=== PATIENT | female | born 1960 | race Caucasian/White ===

== ENCOUNTER 2017-01-16 14:59 | Inpatient (IN) | payer BC ==
[~2017-01-16] VITALS: Ht 154.9 cm; Wt 71.5 kg
[~2017-01-16 14:59] MED LIST: ALBUAER2 INH; CITA40TA4 PO; IBUP600T44 PO; NICO1DIS7 TD; PRT40 PO
[2017-01-16 15:08] VITALS: Ht 154.9 cm; Wt 71.5 kg
[2017-01-16] MEDS ORDERED: ONDANSETRON INJ 2 MG/ML 2 ML VIAL IV STA (15:57)
[2017-01-16] MEDS ORDERED: FAMOTIDINE 20MG/102 ML D5W IV STA (15:57)
[2017-01-16] MEDS ORDERED: ALBUT/IPRATROP 3MG/0.5MG NEB 3 ML VIAL INH STA ×2 (15:57→17:34)
[2017-01-16] MEDS ORDERED: METHYLPREDNISOLONE 125 MG VIAL IV STA (15:57)
[2017-01-16] MEDS ORDERED: SODIUM CHLORIDE 0.9% 1000ML 1,000 ML IV STA (15:57)
--- NOTE | 2017-01-16 16:12 | DIAGNOSTIC IMAGING REPORT ---
CHEST ONE VIEW PORTABLE CLINICAL HISTORY: CHEST PAIN dyspnea COMPARISON STUDY: 02/05/2015 FINDINGS: The bones soft tissues and hemidiaphragms are normal. The cardiomediastinal silhouette is normal. The lungs are clear. The pulmonary vasculature is normal. IMPRESSION: Negative chest. Electronically signed by: Mika Montes De Oca M.D. 01/16/2017 4:10 PM Dictated Date/Time: 01/16/2017 4:10 PM
[2017-01-16 16:28] LABS: BASO % 0.2 %; BASO ABS # 0.04 K/uL (0-0.2); COMPLETE YES; EOS % 0.3 %; IG% 0.4 %; LYMPH % 10.2 %; LYMPH ABS # 1.86 K/uL (1.2-3.4); MEAN CELL VOLUME 94.5 fL (80-100); MEAN CORPUSCULAR HEMOGLOBIN 33.4 pg (25-34); MEAN CORPUSCULAR HGB CONC 35.3 g/dl (32-36); MEAN PLATELET VOLUME 9.7 fL (7.4-10.4); MONO % 6.9 %; PLATELET COUNT 239 K/uL (130-400); RED BLOOD COUNT 4.55 M/uL (4.2-5.4); WHITE BLOOD COUNT 18.22 K/uL (4.8-10.8)
[2017-01-16 16:46] LABS: ALT/SGPT 19 U/L (12-78); AST/SGOT 11 U/L (15-37); BLOOD UREA NITROGEN 8 mg/dl (7-18); BUN/CREATININE RATIO 12.7 (10-20); CALCIUM 8.8 mg/dl (8.5-10.1); CARBON DIOXIDE 27 mmol/L (21-32); CHLORIDE 105 mmol/L (98-107); CREATININE 0.65 mg/dl (0.60-1.20); GLUCOSE 83 mg/dl (70-99); POTASSIUM 3.8 mmol/L (3.5-5.1); SODIUM 140 mmol/L (136-145)
[2017-01-16 16:50] LABS: ALKALINE PHOSPHATASE 115 U/L (45-117)
[2017-01-16] MEDS ORDERED: IBUP-1277 PO (16:56)
[2017-01-16] MEDS ORDERED: ALBU18002 INH (16:56)
[2017-01-16] MEDS ORDERED: FLUT1INH INH (16:56)
[2017-01-16] MEDS ORDERED: ZPAK PO (16:56)
[2017-01-16] MEDS ORDERED: CITA40TA4 PO (16:56)
[2017-01-16] MEDS ORDERED: CEFTRIAXONE SOD INJ 1 GM ADDVIAL IV STA (18:22)
[2017-01-16 18:27] LABS: INFLUENZA A PCR Neg for Influ A (NEG); INFLUENZA B PCR Neg for Influ B (NEG)
--- NOTE | 2017-01-16 18:49 | EMERGENCY ROOM VISIT NOTE ---
History First contact with patient: 15:11 Chief Complaint: ILLNESS Stated Complaint: HEADACHE,VOMITING,FEVER, SORE THROAT, COUGH,COPD History of Present Illness The patient is a 56 year old female who presents to the Emergency Room with complaints of cough, congestion, wheezing, headache, fever, chills for the past day. Other family members are currently sick. Patient continues to smoke. She is COPD. She tried home with minimal improvement of symptoms. She took some Zithromax that she had for her exacerbations of her COPD. Patient denies chest pain, abdominal pain, vomiting, diarrhea, neck stiffness. She is tolerated by mouth fluids and food. Review of Systems See HPI for pertinent positives & negatives. A total of 10 systems reviewed and were otherwise negative. Past Medical/Surgical History Medical Problems: (1) Benign hypertension (2) Bronchitis (3) COPD (chronic obstructive pulmonary disease) (4) Pneumonia Social History Problems: (1) Active smoker Social History Smoking Status: Current Every Day Smoker Drug Use: none Marital Status: Housing Status: lives with family Occupation Status: unemployed Current/Historical Medications Scheduled Albuterol Sulfate (Proair Respiclick), 2 PUFFS INH QID Azithromycin (Azithromycin), 1 TAB PO UD Citalopram (Citalopram Hydrobromide), 40 MG PO DAILY Fluticasone Furoate-Vilanterol (Breo Ellipta), 1 PUFF INH QAM Ipratropium-Albuterol (Duoneb), 1 TREATMENT INH Q6H Scheduled PRN Ibuprofen (Advil), 400-600 MG PO Q6H PRN for Pain Allergies Coded Allergies: CHANTAL Inhibitors (Verified Allergy, Unknown, UNKNOWN RXN, 02/05/15) Zolpidem (Verified Adverse Reaction, Intermediate, other, 02/05/15) irritability, restless legs, wanted to wake up at night during sleep Physical Exam Vital Signs Date Time Temp Pulse Resp B/P Pulse Ox O2 Delivery O2 Flow Rate FiO2 01/16/17 18:41 97 18 117/70 93 Nasal Cannula 2.0 01/16/17 18:17 98 22 131/69 92 Nasal Cannula 01/16/17 16:54 86 Nasal Cannula 2.0 01/16/17 16:47 96 24 132/76 88 Room Air 01/16/17 16:30 94 01/16/17 16:20 93 Room Air 01/16/17 16:20 93 Room Air 01/16/17 15:08 37.4 113 20 126/85 93 Room Air Physical Exam VITALS: Vitals are noted on the nurse's note and reviewed by myself. Vital signs stable. GENERAL: Pleasant female, in no acute distress, nondiaphoretic, well-developed well-nourished. SKIN: The skin was without rashes, erythema, edema, or bruising. There is no tenting of the skin. Capillary reflex less than 2 seconds. HEAD: Normocephalic atraumatic. EARS: External auditory canals clear, tympanic membranes pearly gaytan without erythema or effusion bilaterally. EYES: Pupils equal round and reactive to light and accommodation. Conjunctivae without injection, sclerae without icterus. Extraocular movements intact. NOSE: Patent, turbinates without inflammation or discharge. No sinus tenderness. MOUTH: Mucous membranes moist. Pharynx without erythema or exudate. Uvula midline. Airway patent. Tongue does not deviate. NECK: Supple without nuchal rigidity. No lymphadenopathy. No thyromegaly. Cervical spine is nontender. No JVD. HEART: Regular rate and rhythm LUNGS: Diffuse inspiratory and end expiratory wheezes, without rales or rhonchi. No dullness to percussion. No retractions or accessory muscle use. ABDOMEN: Positive bowel sounds x 4. Normal tympanic percussion. Soft, nontender, without masses or organomegaly. Danielson sign negative. No guarding or rebound tenderness. MUSCULOSKELETAL: No muscle atrophy, erythema, or edema noted. NEURO: Patient was alert and oriented to person place and time. Normal sensation to light and sharp touch. No focal neurological deficits. Medical Decision & Procedures Laboratory Results 01/16/17 16:10 Red Blood Count 4.55, Mean Corpuscular Volume 94.5, Mean Corpuscular Hemoglobin 33.4, Mean Corpuscular Hemoglobin Concent 35.3, Mean Platelet Volume 9.7, Neutrophils (%) (Auto) 82.0, Lymphocytes (%) (Auto) 10.2, Monocytes (%) (Auto) 6.9, Eosinophils (%) (Auto) 0.3, Basophils (%) (Auto) 0.2, Neutrophils # (Auto) 14.95, Lymphocytes # (Auto) 1.86, Monocytes # (Auto) 1.25, Eosinophils # (Auto) 0.05, Basophils # (Auto) 0.04 01/16/17 16:10 Test 01/16/17 16:08 01/16/17 16:10 01/16/17 18:19 Influenza Type A (RT-PCR) Neg for Influ A (NEG) Influenza Type A Antigen Neg for Influ A (NEG) Influenza Type B Antigen Neg for Influ B (NEG) Influenza Type B (RT-PCR) Neg for Influ B (NEG) White Blood Count 18.22 K/uL (4.8-10.8) Red Blood Count 4.55 M/uL (4.2-5.4) Hemoglobin 15.2 g/dL (12.0-16.0) Hematocrit 43.0 % (37-47) Mean Corpuscular Volume 94.5 fL (80-100) Mean Corpuscular Hemoglobin 33.4 pg (25-34) Mean Corpuscular Hemoglobin Concent 35.3 g/dl (32-36) Platelet Count 239 K/uL (130-400) Mean Platelet Volume 9.7 fL (7.4-10.4) Neutrophils (%) (Auto) 82.0 % Lymphocytes (%) (Auto) 10.2 % Monocytes (%) (Auto) 6.9 % Eosinophils (%) (Auto) 0.3 % Basophils (%) (Auto) 0.2 % Neutrophils # (Auto) 14.95 K/uL (1.4-6.5) Lymphocytes # (Auto) 1.86 K/uL (1.2-3.4) Monocytes # (Auto) 1.25 K/uL (0.11-0.59) Eosinophils # (Auto) 0.05 K/uL (0-0.5) Basophils # (Auto) 0.04 K/uL (0-0.2) RDW Standard Deviation 49.6 fL (36.4-46.3) RDW Coefficient of Variation 14.5 % (11.5-14.5) Immature Granulocyte % (Auto) 0.4 % Immature Granulocyte # (Auto) 0.07 K/uL (0.00-0.02) Anion Gap 8.0 mmol/L (3-11) Est Creatinine Clear Calc Drug Dose 84.9 ml/min Estimated GFR () 113.4 Estimated GFR (Non- 97.9 BUN/Creatinine Ratio 12.7 (10-20) Calcium Level 8.8 mg/dl (8.5-10.1) Total Bilirubin 0.7 mg/dl (0.2-1) Direct Bilirubin 0.1 mg/dl (0-0.2) Aspartate Amino Transf (AST/SGOT) 11 U/L (15-37) Alanine Aminotransferase (ALT/SGPT) 19 U/L (12-78) Alkaline Phosphatase 115 U/L (45-117) Troponin I < 0.015 ng/ml (0-0.045) Total Protein 7.3 gm/dl (6.4-8.2) Albumin 3.7 gm/dl (3.4-5.0) Medications Administered Medications (Trade) Dose Ordered Sig/Rao Route Start Time Stop Time Status Last Admin Dose Admin Sodium Chloride (Nss 1000ml) 1,000 ml @ 125 mls/hr Q8H STAT IV 01/16/17 15:57 01/16/17 23:56 01/16/17 16:19 125 MLS/HR Methylprednisolone Sodium Succinate (Solu-Medrol IV) 125 mg NOW STAT IV 01/16/17 15:57 01/16/17 15:59 DC 01/16/17 16:19 125 MG Albuterol/ Ipratropium (Duoneb) 3 ml NOW STAT INH 01/16/17 15:57 01/16/17 15:59 DC 01/16/17 16:39 3 ML Ondansetron HCl (Zofran Inj) 4 mg NOW STAT IV 01/16/17 15:57 01/16/17 15:59 DC 01/16/17 16:19 4 MG Famotidine (Pepcid 20mg/100 ml) 20 mg ONE STAT IV 01/16/17 15:57 01/16/17 15:59 DC 01/16/17 16:19 20 MG Albuterol/ Ipratropium (Duoneb) 3 ml NOW STAT INH 01/16/17 17:34 01/16/17 17:35 DC 01/16/17 17:47 3 ML Ceftriaxone Sodium (Rocephin Inj) 1 gm NOW STAT IV 01/16/17 18:22 01/16/17 18:23 DC 01/16/17 18:39 1 GM ED Course Prior records/ancillary studies reviewed. Triage Nursing notes reviewed. Additional history obtained from the family. The patient's history was concerning for respiratory difficulties. Differential diagnosis: Etiologies such as infections, reactive airway disease, pneumonia, pneumothorax , COPD, CHF, cardiac ischemia, pulmonary embolism, musculoskeletal, gastrointestinal, as well as others were entertained. Physical examination: As above. ER treatment provided: Steroids, nebulizer On reassessment the patient felt better. Diagnostic interpretation by me: The electrocardiogram was negative for acute ischemic or pathologic change. Normal sinus, normal intervals, no acute ST-T wave changes. Impression normal sinus rhythm interpreted by myself The labs revealed leukocytosis, no anemia negative flu. Negative strep test Imaging studies: Chest x-ray as above. CHEST ONE VIEW PORTABLE CLINICAL HISTORY: CHEST PAIN dyspnea COMPARISON STUDY: 02/05/2015 FINDINGS: The bones soft tissues and hemidiaphragms are normal. The cardiomediastinal silhouette is normal. The lungs are clear. The pulmonary vasculature is normal. IMPRESSION: Negative chest. Electronically signed by: Mika Montes De Oca M.D. Consultation: Hospitalist service from [facility] was consulted, DEE Shea and will evaluate the patient for possible admission. Please see their dictation for further admission related to treatment plan. This appears to be consistent with COPD exacerbation. Patient's pulse ox did drop to the mid 80s. Patient does not normally wear oxygen. Patient no pneumonia on x-ray. Patient will be evaluated by medicine for possible admission. By the evaluation outlined above emergent etiologies such as CHF, cardiac ischemia, pulmonary embolism, pneumonia, pneumothorax, musculoskeletal, serious bacterial infections, as well as others were deemed relatively unlikely. The pt informed about the findings as listed above. All questions were answered and pleased with the treatment. Case reviewed with my attending Medical Decision As above Impression Primary Impression: COPD exacerbation Additional Impression: Hypoxemia Departure Information Dispostion Being Evaluated By Hospitalist Condition FAIR Referrals Leigh Ann Lester D.O. (PCP) Patient Instructions [facility] Additional Instructions Problem Qualifiers
[2017-01-16] MEDS ORDERED: ONDANSETRON INJ 2 MG/ML 2 ML VIAL IV PRN (19:00)
[2017-01-16] MEDS ORDERED: ACETAMINOPHEN 325 MG TAB PO PRN (19:00)
[2017-01-16 19:13] LABS: VEN BLD GAS O2 SATURATION 88.4 %; VEN BLOOD GAS BASE EXCESS 0.7 mmol/L; VENOUS BLOOD GAS PCO2 42 mmHg (38.0-50.0); VENOUS BLOOD GAS PO2 59 mmHg
--- NOTE | 2017-01-16 19:39 | History and Physical ---
History & Physical Date & Time of Service: Jan 16, 2017 at 19:05 Chief Complaint: Headache,Vomiting,Fever, Sore Throat, Cough,Copd Primary Care Physician: Leigh Ann Lester D.O. History of Present Illness Source: patient, clinic records, hospital records Patient seen and examined. 56 year old female with PMHx of COPD active tobacco abuse, and fibromyalgia presents to the ED complaining of wheezing x 3 days. Patient reports she has been wheezing much more than her baseline. She reports associated SOB, and cough with sputum production. She reports subjective fevers , nausea, and a few episodes of vomiting. She states her granddaughter had strep throat last week. She states she has been using her nebulizers at home which help. She denies chest pain, palpitation, diarrhea, dysuria, calf pain and edema. She does not use oxygen at home. She states she started a Zpak last night. She did not start any steroids. She has been smoking a pack a day. In the ED VS are initially stable, later hypoxia is recorded. Patient is placed on 2L NC and saturating well. WBC is 18K. CXR is without consolidation. Flu and rapid strep are negative. She received Duonebs x 2, Rocephin and IV Solu- Medrol. She is resting comfortably. She will be admitted for further workup and treatment. Past Medical/Surgical History Medical Problems: (1) COPD (chronic obstructive pulmonary disease) Status: Chronic (2) Fibromyalgia Status: Chronic (3) HLD (hyperlipidemia) Status: Chronic (4) HTN (hypertension) Status: Chronic Surgical Problems: (1) No pertinent past surgical history Status: Chronic Social History Problems: (1) Active smoker Status: Chronic Family History Depression Diabetes mellitus Social History Smoking Status: Current Every Day Smoker Alcohol Use: occasionally Drug Use: none Marital Status: Housing status: lives with family Occupational Status: unemployed Immunizations History of Influenza Vaccine: No Influenza Vaccine Date: Jul 25, 2008 History of Tetanus Vaccine?: No History of Pneumococcal: Yes History of Hepatitis B Vaccine: No Multi-Drug Resistant Organisms History of MDRO: No Allergies Coded Allergies: CHANTAL Inhibitors (Verified Allergy, Unknown, UNKNOWN RXN, 02/05/15) Zolpidem (Verified Adverse Reaction, Intermediate, other, 02/05/15) irritability, restless legs, wanted to wake up at night during sleep Home Medications Scheduled Azithromycin (Azithromycin), 1 TAB PO UD Citalopram (Citalopram Hydrobromide), 40 MG PO DAILY Fluticasone Furoate-Vilanterol (Breo Ellipta), 1 PUFF INH QAM Scheduled PRN Albuterol Sulfate (Proair Respiclick), 2 PUFFS INH QID PRN for SOB/Wheezing Ibuprofen (Advil), 400-600 MG PO Q6H PRN for Pain Ipratropium-Albuterol (Duoneb), 1 TREATMENT INH Q6H PRN for SOB/Wheezing Review of Systems See above for pertinent positives & negatives. A total of 10 systems reviewed and were otherwise negative. Physical Exam Vital Signs Date Time Temp Pulse Resp B/P Pulse Ox O2 Delivery O2 Flow Rate FiO2 01/16/17 18:41 97 18 117/70 93 Nasal Cannula 2.0 01/16/17 18:17 98 22 131/69 92 Nasal Cannula 01/16/17 16:54 86 Nasal Cannula 2.0 01/16/17 16:47 96 24 132/76 88 Room Air 01/16/17 16:30 94 01/16/17 16:20 93 Room Air 01/16/17 16:20 93 Room Air 01/16/17 15:08 37.4 113 20 126/85 93 Room Air General Appearance: + pertinent finding (WD/WN 56 year old female lying in bed in NAD ) Head: normocephalic, atraumatic Eyes: PERRL, EOMI, sclerae normal ENT: hearing grossly normal, pharynx normal Neck: supple, no JVD Respiratory/Chest: chest non-tender, no respiratory distress, no accessory muscle use, + pertinent finding (Coarse breath sounds, good air entry, no wheezes noted s/p duoneb x 2) Cardiovascular: regular rate, rhythm, no edema, no gallop, no JVD, no murmur, normal peripheral pulses Abdomen/GI: normal bowel sounds, non tender, soft Back: normal inspection, no muscle spasm Extremities/Musculoskelatal: no calf tenderness, normal capillary refill, no pedal edema Neurologic/Psych: alert, oriented x 3, + pertinent finding (no focal deficits noted on gross exam ) Skin: normal color, warm/dry, no rash Lymphatic: no adenopathy Diagnostics Laboratory Results Results Past 24 Hours Test 01/16/17 16:08 4/13/17 16:10 01/16/17 18:19 Range/Units Influenza Type A (RT-PCR) Neg for Influ A NEG Influenza Type A Antigen Neg for Influ A NEG Influenza Type B Antigen Neg for Influ B NEG Influenza Type B (RT-PCR) Neg for Influ B NEG White Blood Count 18.22 4.8-10.8 K/uL Red Blood Count 4.55 4.2-5.4 M/uL Hemoglobin 15.2 12.0-16.0 g/dL Hematocrit 43.0 37-47 % Mean Corpuscular Volume 94.5 80-100 fL Mean Corpuscular Hemoglobin 33.4 25-34 pg Mean Corpuscular Hemoglobin Concent 35.3 32-36 g/dl Platelet Count 239 130-400 K/uL Mean Platelet Volume 9.7 7.4-10.4 fL Neutrophils (%) (Auto) 82.0 % Lymphocytes (%) (Auto) 10.2 % Monocytes (%) (Auto) 6.9 % Eosinophils (%) (Auto) 0.3 % Basophils (%) (Auto) 0.2 % Neutrophils # (Auto) 14.95 1.4-6.5 K/uL Lymphocytes # (Auto) 1.86 1.2-3.4 K/uL Monocytes # (Auto) 1.25 0.11-0.59 K/uL Eosinophils # (Auto) 0.05 0-0.5 K/uL Basophils # (Auto) 0.04 0-0.2 K/uL RDW Standard Deviation 49.6 36.4-46.3 fL RDW Coefficient of Variation 14.5 11.5-14.5 % Immature Granulocyte % (Auto) 0.4 % Immature Granulocyte # (Auto) 0.07 0.00-0.02 K/uL Sodium Level 140 136-145 mmol/L Potassium Level 3.8 3.5-5.1 mmol/L Chloride Level 105 98-107 mmol/L Carbon Dioxide Level 27 21-32 mmol/L Anion Gap 8.0 3-11 mmol/L Blood Urea Nitrogen 8 7-18 mg/dl Creatinine 0.65 0.60-1.20 mg/dl Est Creatinine Clear Calc Drug Dose 84.9 ml/min Estimated GFR () 113.4 Estimated GFR (Non- 97.9 BUN/Creatinine Ratio 12.7 10-20 Random Glucose 83 70-99 mg/dl Calcium Level 8.8 8.5-10.1 mg/dl Total Bilirubin 0.7 0.2-1 mg/dl Direct Bilirubin 0.1 0-0.2 mg/dl Aspartate Amino Transf (AST/SGOT) 11 15-37 U/L Alanine Aminotransferase (ALT/SGPT) 19 12-78 U/L Alkaline Phosphatase 115 45-117 U/L Troponin I < 0.015 0-0.045 ng/ml Total Protein 7.3 6.4-8.2 gm/dl Albumin 3.7 3.4-5.0 gm/dl Microbiology Results 01/16/17 Group A Streptococcus Screen - Final, Resulted SPECIMEN NEGATIVE FOR GROUP A BETA ST... 01/16/17 Group A Streptococcus Screen (KAROL), Resulted Pending Diagnostic Radiology CXR Per radiologist read: IMPRESSION: Negative chest. EKG NSR 93 BPM, Qtc 432 Impression Assessment and Plan 56 year old female smoking 1 pack per day presents to the ED complaining of increased cough, sputum production, SOB ACUTE EXACERBATION OF COPD with acute hypoxia -Admit to med/surg -CXR without pneumonia, flu, rapid strep negative -WBC count 18K, no recent steroids, will trend -Became hypoxic on RA during stay saturating well on 2L NC -received IV Solu-Medrol, duonebs x 2 and Rocephin, IVFs in ED, feeling much better -Check sputum culture -Will continue Rocephin daily, and Zpak patient started at home yesterday -Received 125mg IV Solu-Medrol in ED will start prednisone 40mg po in AM -Duonebs scheduled and prn sob/wheeze -continue supplemental oxygen as needed -Smoking cessation counseling FIBROMYALGIA -continue Celexa HTN -per chart, not on home meds -BP stable, monitor per routine TOBACCO ABUSE -Cessation counseling given -Nicotine patch ordered DVT PROPHYLAXIS: Sq Lovenox CODE STATUS: FULL CODE DISPO:In my clinical judgment this beneficiary meets acute admission criteria, established by [facility], that includes being hospitalized through two midnights. Patient seen in collaboration with Dr. Obrien VTE Prophylaxis VTE Risk Assessment Done? Y/N: Yes Risk Level: Moderate Given or contraindicated: Enoxaparin (Lovenox)SQ Note ATTENDING ADDENDUM Record reviewed. Patient interviewed and examined. Care coordinated with Monse Luciano PA-C. Please refer to her documentation for patient's history. EXAM: General- coughing, no acute distress VS- as noted Neck- no JVD Lungs- scattered rhonchi, diffuse wheezing Heart- RRR Abdomen- + BS, soft, nontender Extremities- no pretibial edema or calf tenderness Neuro- alert DATA: WBC 18,220. Lactate = 0.60. Other lab studies as noted. CXR- no infiltrates ASSESSMENT AND PLAN: Exacerbation of COPD due to bronchitis. Rx with azithromycin, ceftriaxone, steroids, bronchodilators. Please refer to RUI Luciano's documentation for discussion of other issues. Jan Obrien MD .
[2017-01-16] MEDS ORDERED: AZITHROMYCIN 250 MG TAB PO ONE (19:45)
[2017-01-16] MEDS ORDERED: ALBUT/IPRATROP 3MG/0.5MG NEB 3 ML VIAL INH PRN (19:45)
[2017-01-16 20:02] LABS: PARTIAL THROMBOPLASTIN RATIO 1.1; PROTHROMBIN TIME (PATIENT) 10.5 SECONDS (9.0-12.0)
[2017-01-16 20:38] VITALS: BP 134/83; PULSE 98; TEMP 37; O2SAT 91
[2017-01-16 20:39] VITALS: O2SAT 91
[2017-01-16] MEDS ORDERED: IPRASOL4 INH (20:55)
[2017-01-16] MEDS: ENOXAPARIN 40 MG/0.4 ML SYR SQ SCH (21:14)
[2017-01-16] MEDS: ALBUT/IPRATROP 3MG/0.5MG NEB 3 ML VIAL INH SCH (23:35)
[2017-01-16 23:39] VITALS: PULSE 93; O2SAT 93
[2017-01-17] VITALS (11 sets, daily range): BP systolic 105–116; BP diastolic 69–79; PULSE 66–91; TEMP 36.6–36.9; O2SAT 89–98
[2017-01-17 06:58] LABS: HEMATOCRIT 40.2 % (37-47); MEAN CELL VOLUME 94.1 fL (80-100); MEAN CORPUSCULAR HEMOGLOBIN 31.4 pg (25-34); MEAN CORPUSCULAR HGB CONC 33.3 g/dl (32-36); MEAN PLATELET VOLUME 9.6 fL (7.4-10.4); PLATELET COUNT 229 K/uL (130-400); RED BLOOD COUNT 4.27 M/uL (4.2-5.4); WHITE BLOOD COUNT 16.95 K/uL (4.8-10.8)
[2017-01-17 07:34] LABS: BUN/CREATININE RATIO 16.1 (10-20); CALCIUM 8.7 mg/dl (8.5-10.1); CREATININE 0.59 mg/dl (0.60-1.20); POTASSIUM 4.1 mmol/L (3.5-5.1)
[2017-01-17] MEDS: ALBUT/IPRATROP 3MG/0.5MG NEB 3 ML VIAL INH SCH ×4 (07:52→19:10)
[2017-01-17] MEDS: AZITHROMYCIN 250 MG TAB PO SCH (09:29)
[2017-01-17] MEDS: CITALOPRAM 40 MG TAB PO SCH (09:31)
[2017-01-17] MEDS: NICOTINE 14 MG/24 HR TDSY TD SCH (09:32)
[2017-01-17] MEDS: FLUTICASONE FUROATE-VILANTEROL 30 PUFFS/INHALER INH INH SCH (12:48)
--- NOTE | 2017-01-17 16:29 | Progress Note ---
Internal Med Progress Note Date of Service: Jan 17, 2017. Provider Documentation: SUBJECTIVE: sitting on the chair comfortably says her sob and cough little better than yesterday afebrile no chest pain want to go home OBJECTIVE: Vital Signs-as noted below Exam: General-alert and awake and oriented ENT-normal hearing Neck-no neck masses Lungs-mild b/l diminished breath sounds no wheezing or crackles Heart-s1 and s2 heard regular rate and rhythm no murmurs Abdomen-soft bowel sounds present non tender no distension Extremities- no erythema no edema Neuro-alert and awake moves extremities Lab data as noted below. ASSESSMENT & PLAN: 56 year old female smoking 1 pack per day presents to the ED complaining of increased cough, sputum production, SOB ACUTE EXACERBATION OF COPD with acute hypoxia on room air on iv steroids, nebs and abx cxr no pneumonia improving will continue same . FIBROMYALGIA On Celexa HTN as per records not on meds will monitor TOBACCO ABUSE Smoking Cessation counseling On Nicotine patch DVT PROPHYLAXIS: Sq Lovenox CODE STATUS: FULL CODE DISPOSITION possible d/c in am Vital Signs: Date Time Temp Pulse Resp B/P Pulse Ox O2 Delivery O2 Flow Rate FiO2 01/17/17 16:15 90 16 93 Room Air 01/17/17 14:44 36.9 91 18 112/72 98 01/17/17 12:35 95 Nasal Cannula 2.0 01/17/17 12:30 89 Room Air 01/17/17 11:05 91 16 93 Room Air 01/17/17 08:00 Room Air 01/17/17 07:43 36.8 78 18 116/79 94 01/17/17 07:08 66 16 97 Nasal Cannula 2.0 01/17/17 00:08 36.6 69 16 105/69 94 2.0 01/17/17 00:00 93 Nasal Cannula 2.0 01/16/17 23:39 93 16 93 Nasal Cannula 2.0 01/16/17 20:39 91 Nasal Cannula 2.0 01/16/17 20:38 37.0 98 18 134/83 91 Nasal Cannula 2.0 01/16/17 20:04 91 18 116/69 92 01/16/17 19:33 92 18 92 Nasal Cannula 2.0 01/16/17 18:41 97 18 117/70 93 Nasal Cannula 2.0 01/16/17 18:17 98 22 131/69 92 Nasal Cannula 01/16/17 16:54 86 Nasal Cannula 2.0 01/16/17 16:47 96 24 132/76 88 Room Air 01/16/17 16:30 94 01/16/17 16:20 93 Room Air 01/16/17 16:20 93 Room Air Lab Results: Results Past 24 Hours Test 01/16/17 19:02 01/16/17 19:07 01/17/17 06:25 Range/Units Venous Blood pH 7.40 7.36-7.41 Venous Blood Partial Pressure CO2 42 38.0-50.0 mmHg Venous Blood Partial Pressure O2 59 mmHg Venous Blood HCO3 26 meq/L Venous Blood Oxygen Saturation 88.4 % Venous Blood Base Excess 0.7 mmol/L Bedside Lactic Acid Venous 0.60 0.90-1.70 mmol/L White Blood Count 16.95 4.8-10.8 K/uL Red Blood Count 4.27 4.2-5.4 M/uL Hemoglobin 13.4 12.0-16.0 g/dL Hematocrit 40.2 37-47 % Mean Corpuscular Volume 94.1 80-100 fL Mean Corpuscular Hemoglobin 31.4 25-34 pg Mean Corpuscular Hemoglobin Concent 33.3 32-36 g/dl RDW Standard Deviation 49.4 36.4-46.3 fL RDW Coefficient of Variation 14.4 11.5-14.5 % Platelet Count 229 130-400 K/uL Mean Platelet Volume 9.6 7.4-10.4 fL Sodium Level 141 136-145 mmol/L Potassium Level 4.1 3.5-5.1 mmol/L Chloride Level 107 98-107 mmol/L Carbon Dioxide Level 26 21-32 mmol/L Anion Gap 8.0 3-11 mmol/L Blood Urea Nitrogen 10 7-18 mg/dl Creatinine 0.59 0.60-1.20 mg/dl Est Creatinine Clear Calc Drug Dose 93.9 ml/min Estimated GFR () 117.1 Estimated GFR (Non- 101.0 BUN/Creatinine Ratio 16.1 10-20 Random Glucose 126 70-99 mg/dl Calcium Level 8.7 8.5-10.1 mg/dl Microbiology Results 01/16/17 Group A Streptococcus Screen - Final, Resulted SPECIMEN NEGATIVE FOR GROUP A BETA ST... 01/16/17 Group A Streptococcus Screen (KAROL) - Preliminary, Resulted NO BETA STREP ISOLATED TO DATE. 01/17/17 Gram Stain, Received Pending 01/17/17 Sputum Culture, Received Pending
[2017-01-17] MEDS ORDERED: CEFTRIAXONE SOD INJ 1 GM in DEXTROSE 5% ADD-VANTAGE 50ML 50 ML IV SCH (18:00)
[2017-01-17] MEDS: ENOXAPARIN 40 MG/0.4 ML SYR SQ SCH (21:13)
[2017-01-18] VITALS (7 sets, daily range): BP systolic 108–125; BP diastolic 68–74; PULSE 72–85; TEMP 36.6–36.8; O2SAT 92–98
[2017-01-18] MEDS: ALBUT/IPRATROP 3MG/0.5MG NEB 3 ML VIAL INH SCH ×2 (07:22→11:16)
[2017-01-18] MEDS: FLUTICASONE FUROATE-VILANTEROL 30 PUFFS/INHALER INH INH SCH (08:46)
[2017-01-18] MEDS: AZITHROMYCIN 250 MG TAB PO SCH (08:46)
[2017-01-18] MEDS: CITALOPRAM 40 MG TAB PO SCH (08:47)
[2017-01-18] MEDS: NICOTINE 14 MG/24 HR TDSY TD SCH (08:47)
[2017-01-18] MEDS ORDERED: DOXY100C41 PO (11:08)
[2017-01-18] MEDS ORDERED: PRED10TA PO (11:08)
--- NOTE | 2017-01-18 11:09 | Discharge Instructions ---
Discharge Instructions Date of Service Jan 18, 2017. Admission Reason for Admission: Copd Exacerbation, Hypoxemia Discharge Discharge Diagnosis / Problem: COPD EX Discharge Goals Goal(s): Decrease discomfort, Improve function Activity Recommendations Activity Limitations: resume your previous activity . Instructions / Follow-Up Instructions / Follow-Up FOLLOWUP WITH FAMILY DOCTOR Leigh Ann Christopher ON January AT 10:45AM Current Hospital Diet Patient's current hospital diet: AHA Diet (Heart Healthy) Discharge Diet Recommended Diet: Regular Diet Pending Studies Studies pending at discharge: no Medical Emergencies . Who to Call and When: Medical Emergencies: If at any time you feel your situation is an emergency, please call 911 immediately. . Non-Emergent Contact Non-Emergency issues call your: Primary Care Provider . . "Provider Documentation" section prepared by Jorge Ortega. VTE Core Measure Inpt VTE Proph given/why not?: Enoxaparin (Lovenox)SQ
--- NOTE | 2017-01-18 18:01 | Progress Note ---
Internal Med Progress Note Date of Service: Jan 18, 2017. Provider Documentation: SUBJECTIVE: resting comfortably cough and sob improved has some face swelling last night thought to be from abx abut improved with Benadryl. denies any other complaints wants to be discharged OBJECTIVE: Vital Signs-as noted below Exam: General-alert and awake and oriented ENT-normal hearing Neck-no neck masses Lungs-cta b/l no wheezing or crackles Heart-s1 and s2 heard regular rate and rhythm no murmurs Abdomen-soft bowel sounds present non tender no distension Extremities- no erythema no edema Neuro-alert and awake moves extremities Lab data as noted below. ASSESSMENT & PLAN: 56 year old female smoking 1 pack per day presents to the ED complaining of increased cough, sputum production, SOB ACUTE EXACERBATION OF COPD with acute hypoxia on room air on iv steroids, nebs and abx cxr no pneumonia improving was on Rocephin and azithromycin and developed facial swelling improved with Benadryl. discharged on po doxycycline and steroid taper. stable FIBROMYALGIA On Celexa HTN as per records not on meds will monitor TOBACCO ABUSE Smoking Cessation counseling On Nicotine patch Discharged home Vital Signs: Date Time Temp Pulse Resp B/P Pulse Ox O2 Delivery O2 Flow Rate FiO2 01/18/17 11:25 93 Room Air 01/18/17 11:20 93 Room Air 01/18/17 11:16 81 16 93 Room Air 01/18/17 11:16 36.8 75 16 92 Room Air 01/18/17 08:00 92 Room Air 01/18/17 07:22 75 16 98 Nasal Cannula 1.5 01/18/17 07:20 36.8 72 16 108/68 97 Nasal Cannula 1.0 01/18/17 00:15 36.6 85 16 125/74 95 1.5 01/17/17 23:28 Nasal Cannula 1.5 01/17/17 19:10 88 16 98 Nasal Cannula 2.0
--- NOTE | 2017-01-18 18:13 | Discharge Summary ---
Discharge Summary Date of Service Jan 18, 2017. Discharge Summary Admission Date: Jan 16, 2017 at 19:02 Discharge Date: Jan 18, 2017 Discharge Disposition: Home Principal Diagnosis: COPD EX Secondary Diagnoses/Problems: (1) COPD (chronic obstructive pulmonary disease) Status: Chronic (2) Fibromyalgia Status: Chronic (3) HLD (hyperlipidemia) Status: Chronic (4) HTN (hypertension) Status: Chronic Procedures: CXR: Negative chest. Medication Reconciliation New Medications: Doxycycline (Monohydrate) (Monodox) 100 Mg Cap 100 MG PO BID, #10 CAP Prednisone Tab (Prednisone) 10 Mg Tab 40 MG PO UD, #21 TAB PREDNSIONE 40MG PO DAILY X 2 DAYS THEN PREDNSIONE 30MG PO DAILY X 2 DAYS THEN PREDNSIONE 20MG PO DAILY X 2 DAYS THEN PREDNSIONE 10MG PO DAILY X 2 DAYS THEN PREDNSIONE 5MG PO DAILY X 2 DAYS THEN STOP. Continued Medications: Albuterol Sulfate (Proair Respiclick) 108 Mcg/Act Aer 2 PUFFS INH QID PRN for SOB/Wheezing Citalopram (Citalopram Hydrobromide) 40 Mg Tab 40 MG PO DAILY Fluticasone Furoate-Vilanterol (Breo Ellipta) 1 Inh Inh 1 PUFF INH QAM Ibuprofen (Advil) 200 Mg Tab 400-600 MG PO Q6H PRN for Pain, TAB Ipratropium-Albuterol (Duoneb) 3 Ml Nebu 1 TREATMENT INH Q6H PRN for SOB/Wheezing, INHA Discontinued Medications: Azithromycin (Azithromycin) 1 Pkt Tab 1 TAB PO UD, #6 PRESCRIBED 01/15/2017, TAKE 2 TABLETS DAY 1 THEN 1 TABLET DAILY UNTIL GONE Admission Information HPI (per Admitting provider): Patient seen and examined. 56 year old female with PMHx of COPD active tobacco abuse, and fibromyalgia presents to the ED complaining of wheezing x 3 days. Patient reports she has been wheezing much more than her baseline. She reports associated SOB, and cough with sputum production. She reports subjective fevers , nausea, and a few episodes of vomiting. She states her granddaughter had strep throat last week. She states she has been using her nebulizers at home which help. She denies chest pain, palpitation, diarrhea, dysuria, calf pain and edema. She does not use oxygen at home. She states she started a Zpak last night. She did not start any steroids. She has been smoking a pack a day. In the ED VS are initially stable, later hypoxia is recorded. Patient is placed on 2L NC and saturating well. WBC is 18K. CXR is without consolidation. Flu and rapid strep are negative. She received Duonebs x 2, Rocephin and IV Solu- Medrol. She is resting comfortably. She will be admitted for further workup and treatment. Physical Exam (per Admitting): General Appearance: + pertinent finding (WD/WN 56 year old female lying in bed in NAD ) Head: normocephalic, atraumatic Eyes: PERRL, EOMI, sclerae normal ENT: hearing grossly normal, pharynx normal Neck: supple, no JVD Respiratory/Chest: chest non-tender, no respiratory distress, no accessory muscle use, + pertinent finding (Coarse breath sounds, good air entry, no wheezes noted s/p duoneb x 2) Cardiovascular: regular rate, rhythm, no edema, no gallop, no JVD, no murmur , normal peripheral pulses Abdomen/GI: normal bowel sounds, non tender, soft Back: normal inspection, no muscle spasm Extremities/Musculoskelatal: no calf tenderness, normal capillary refill, no pedal edema Neurologic/Psych: alert, oriented x 3, + pertinent finding (no focal deficits noted on gross exam ) Skin: normal color, warm/dry, no rash Lymphatic: no adenopathy Physical Exam (per Admitting): General Appearance: + pertinent finding (WD/WN 56 year old female lying in bed in NAD ) Head: normocephalic, atraumatic Eyes: PERRL, EOMI, sclerae normal ENT: hearing grossly normal, pharynx normal Neck: supple, no JVD Respiratory/Chest: chest non-tender, no respiratory distress, no accessory muscle use, + pertinent finding (Coarse breath sounds, good air entry, no wheezes noted s/p duoneb x 2) Cardiovascular: regular rate, rhythm, no edema, no gallop, no JVD, no murmur, normal peripheral pulses Abdomen/GI: normal bowel sounds, non tender, soft Back: normal inspection, no muscle spasm Extremities/Musculoskelatal: no calf tenderness, normal capillary refill, no pedal edema Neurologic/Psych: alert, oriented x 3, + pertinent finding (no focal deficits noted on gross exam ) Skin: normal color, warm/dry, no rash Lymphatic: no adenopathy Hospital Course 56 year old female smoking 1 pack per day presents to the ED complaining of increased cough, sputum production, SOB ACUTE EXACERBATION OF COPD with acute hypoxia on room air on iv steroids, nebs and abx cxr no pneumonia improving was on Rocephin and azithromycin and developed facial swelling improved with Benadryl. discharged on po doxycycline and steroid taper. stable FIBROMYALGIA On Celexa HTN as per records not on meds will monitor TOBACCO ABUSE Smoking Cessation counseling On Nicotine patch Discharged home Total time spent on discharge = 35MINUTES This includes examination of the patient, discharge planning, medication reconciliation, and communication with other providers. Discharge Instructions Discharge Instructions Date of Service Jan 18, 2017. Admission Reason for Admission: Copd Exacerbation, Hypoxemia Discharge Discharge Diagnosis / Problem: COPD EX Discharge Goals Goal(s): Decrease discomfort, Improve function Activity Recommendations Activity Limitations: resume your previous activity . Instructions / Follow-Up Instructions / Follow-Up FOLLOWUP WITH FAMILY DOCTOR Leigh Ann Christopher ON January AT 10:45AM Current Hospital Diet Patient's current hospital diet: AHA Diet (Heart Healthy) Discharge Diet Recommended Diet: Regular Diet Pending Studies Studies pending at discharge: no Medical Emergencies . Who to Call and When: Medical Emergencies: If at any time you feel your situation is an emergency, please call 911 immediately. . Non-Emergent Contact Non-Emergency issues call your: Primary Care Provider . . "Provider Documentation" section prepared by Jorge Ortega. VTE Core Measure Inpt VTE Proph given/why not?: Enoxaparin (Lovenox)SQ
== END 2017-01-18 12:00 | disposition home or self-care (01) | DRG 192 ==
LOC: ENRESERVDT → ENRESERVTM → C.EDB 15:01 → C.MS2W 19:02
PROVIDERS: ADMIT Hospitalist; ATTEND Internal Medicine
DX: J44.1 Chronic obstructive pulmonary disease with (acute) exacerbation (principal); F17.210 Nicotine dependence, cigarettes, uncomplicated; I10 Essential (primary) hypertension; R09.02 Hypoxemia; M79.7 Fibromyalgia; E78.5 Hyperlipidemia, unspecified

== ENCOUNTER → 2017-08-11 | Outpatient (CLI) | payer BC ==
[~2017-08-11] MED LIST changes: +ALBU18002 INH; -ALBUAER2 INH; +FLUT1INH INH; +IBUP-1277 PO; -IBUP600T44 PO; +IPRASOL4 INH; -NICO1DIS7 TD; -PRT40 PO
[2017-08-11 16:28] LABS: ARTERIAL BLD GAS O2 SATURATION 96.5 % (90-95); ARTERIAL BLOOD GAS BASE EXCESS 3.7 mEq/L (-9-1.8); ARTERIAL BLOOD GAS HCO3 28 mmol/L (19-24); ARTERIAL BLOOD GAS PO2 83 mm/Hg (80-95); ARTERIAL BLOOD GAS pH 7.47 (7.35-7.45)
[2017-08-11 16:29] LABS: ALLEN TEST POS (POS); O2 ADMINISTRATION ROOM AIR
== END | disposition home or self-care (01) ==
LOC: C.LAB 15:47
PROVIDERS: ATTEND Internal Medicine
DX: G47.33 Obstructive sleep apnea (adult) (pediatric) (principal); J44.9 Chronic obstructive pulmonary disease, unspecified

== ENCOUNTER → 2017-08-24 | Outpatient (CLI) | payer BC ==
--- NOTE | 2017-08-25 06:46 | PAP/PSG TECHNICIAN REPORT ---
[facility] Test Automation Architect Polysomnogram Report Study name: None Report date: 08/25/2017 Study date: 08/24/2017 Referring Physician: Wendy Knox Name: DAVID BARROW Interpreting Physician: Jan Arguello M.D. Date of : 1960 Test Automation Architect: ADELINA Torres. Sex: Female Age: 57 StudyType: PSG Weight: 155 lbs Height: 57 years, Height 5' 1" Neck Circum:16.5inches BMI: 29.28 Medications: Oxygen 2LPM during sleep, Celexa 40mg, Breo Ellipta 100-25 mcg/inh, Duoneb 2.5-0.5mg/3ml, Xanax 0.25mg, Proair HFA 108mcg/act, Prilosec 20mg, Ibuprofen 600mg Patient History Study started on room air with ETCO2 monitoring in room #8. 57 yr old female here tonight for a possible split study if her AHI>5. She had a HST that was inconclusive. She has significant hypoxemia and airway disease. She has a history of asthma and COPD. She is a smoker. She is on 2lpm oxygen at night. Her ESS=18/24. Neck circ=16.5inches. Parameters Monitored NPSG: E1-M2, E2-M1, Fp1-M2, Fp2-M1, F3-M2, F4-M2, F4-M1, C3-M2, C4-M2, C4-M1, O1-M2, O2-M2, O2-M1, T3-M2, T4-M1, P3-M2, P4-M1, CHIN1, CHIN2, HR, EKG, Legs, PFLOW, SNOR, FLOW, CFLOW, Tidal Volume, THOR, ABDO, SpO2, PLTH, CPRESS, ETCO2 Wave, ETCO2, pH Sleep Architecture Sleep Stages Time at Lights Off 10:15:57 PM STAGES Time (min.) TST (%) Time at Lights On 5:18:57 AM Wake 124.0 -- Total Recording Time (TRT) 423.00 min. N1 22.5 8 Total Sleep Period (TSP) 358.5 min. N2 230.0 77 Total Sleep Time (TST) 299.0min. N3 33.0 11 Awake Time 124.0 min. REM 13.5 5 Wake after Sleep Onset 60.0 min. Sleep Efficiency (SE) 71 % Sleep Onset Latency (DEANNA) 64.0 min. Number of Stage 1 Shifts None Awakenings 32 Stage Changes 137 Number of REM periods 1 REM 13.5 5 REM Latency 220.0 min. NREM 285.5 95 Body Position Analysis Supine Right Left Side Prone Vertical Total Sleep Time (min.) 157.5 56.0 88.2 144.23 50.9 0.0 Total Sleep Time (%) 42% 19% 30% 48 9% N/A% Total Sleep Time REM (min.) 13.5 0.0 0.0 None 0.0 0.0 Total Sleep Time NREM (min.) 113.0 56.0 88.2 None 28.3 0.0 Intermittent Wake (min.) 31.0 16.0 54.4 None 22.7 0.0 Total Sleep Period (%) 40% None None None None None Arousals Myoclonus (PLM) * Events Count Index Events Count Index Spontaneous 22 4 Events Awake (PLMW) 135 65.3 Respiratory 0 0.2 Events Asleep w/ Arousal (PLMA) 39 7.8 PLM 39 8 Events Asleep w/o Arousal (PLMS) 246 49.4 Snoring 14 3 Total Asleep 285 57.2 Total 75 15 Total 420 60 Respiratory Analysis * CA OA MA CH H RERA Total Count 0 4 0 0 4 0 8 Index 0.0 0.8 0.0 0 0.8 0 1.6 Mean Duration 0.0 13.1 0.0 0.00 17.1 0.0 15.1 Longest Duration 0.0 16.2 0.0 0.00 0.0 0.0 21.2 Respiratory Event Summary Total Supine ~Supine Right Left Prone REM NREM Apneas Count 4 4 0 0 0 0 0 4 Index 0.8 2 0 0.0 0.0 0 0 1 Hypopneas (4% Desat) Count 4 4 0 0 0 0 3 1 Index 0.8 1.9 0 0.0 0.0 0.0 13.3 0.2 Apneas & All Hypopneas Count 8 8 0 0 0 0 3 5 Index 1.6 4 0 0 0 0 13.3 1.1 Respiratory Events (Waste Hand+All Hyp+RERA) Count 8 8 0 0 0 0 3 5 Index 1.6 4 0 0.0 0.0 0.0 13.3 1.1 Respiratory Related Arousal Count 0 8 0 0 0 0 0 1 Index 0.2 0 0 0 0 0 0 0 Snoring Analysis Supine Right Left Prone REM NREM Total Snore duration 37.8 min Snores count 658 17 418 9 33 1,069 1,102 Snore mean duration 2.1 Sec Snores index 312 18 284 19 146.7 224.7 221.1 TST with snoring (%) 12.6% SpO2 Analysis Total REM NREM Awake <50% 0.0 min. 0.0 min. 0.0 min. 0.0 min. 51 - 60% 0.0 min. 0.0 min. 0.0 min. 0.0 min. 61 - 70% 0.0 min. 0.0 min. 0.0 min. 0.0 min. 71 - 80% 0.1 min. 0.1 min. 0.0 min. 0.0 min. 81 - 90% 396.6 min. 13.4 min. 266.2 min. 117.0 min. 91 - 100% 21.5 min. 0.0 min. 17.0 min. 4.5 min. Average 87 84 87 88 Minimum SpO2 79 79 83 81 Desaturation Event Index 3.4 35.6 2.1 2.9 # Desat. Events below 89% 24 8 10 6 Time(%) with Saturation below 89% 70.1 3.2 46.0 20.9 Time(min.) with Saturation below 89% 293.2 13.4 192.3 87.4 Heart Rate Analysis End Tidal CO2 Analysis Min (bpm) Max (bpm) Average (bpm) TSP (mins) % of TSP Awake 64 155 73 Above 55 mmHg 0.0 0.0 NREM 62 127 71 50-55 mmHg 0.0 0.0 REM 60 80 72 45-50 mmHg 3.8 1.3 Overall 60 127 71 40-45 mmHg 154.2 51.6 35-40 mmHg 84.6 28.3 30-35 mmHg 21.7 7.3 Average ETCO2 0.1 Supplemental O2 Values Minimum O2 level: None Value Start Time End Time Test Automation Architect Comments Mrs. Barrow slept in the right, left, supine and prone positions. No cardiac arrhythmia noted. PLM's noted and her legs were bothering her in the beginning of the study and she had a difficult time staying asleep. No bruxism noted. Snoring was noted and scored as a 3 on a scale of 1 through 5. (0=no snoring, 5=snoring loud enough to be heard through a closed door or down the balderas way) She did not use the restroom during the night. She stated that she slept worse than when at home. She did not qualify for a split night study. The final report will be interpreted and signed by a sleep physician. The completed physician report will then be placed in the patient medical record. Therapy (cm H2O) 0 TIB (min.) 423.0 TST (min.) 299.0 Sleep Onset (min.) 64.0 REM Onset From Sleep (min.) 220.0 Sleep Efficiency % 71 Wakefulness (%) 29 Wakefulness (min.) 124.0 NREM 1 (%) 8 NREM 1 (min.) 22.5 NREM 2 (%) 77 NREM 2 (min.) 230.0 NREM 3 (%) 11 NREM 3 (min.) 33.0 REM (%) 5 REM (min.) 13.5 # Arousals 75 Arousal Index 15 # Snore 1,102 Snore Index 221.1 AHI 1.6 AHI Supine 4 AHI Non-Supine 0 NREM AHI 1.1 REM AHI 13.3 RDI 1.6 # Obstructive Apnea 4 # Central Apnea 0 # Mixed Apnea 0 # Hypopneas 4 RERAs 0 Total Respiratory Events 10 Time Below SpO2 89% (min.) 205.7 Mean NREM SpO2 (%) 87 Mean REM SpO2 (%) 84 Mean Sleep SpO2 (%) 87 Min NREM SpO2 (%) 83 Min REM SpO2 (%) 79 Position Supine (min.) 157.5 Position Non-supine (min.) 172.5 LM Index Sleep 57.2 LM Index NREM 59.7 LM Index REM 4.4 Mean Heart Rate (bpm) 71 Min Heart Rate (bpm) 60
--- NOTE | 2017-08-26 17:55 | POLYSOMNOGRAPH REPORT ---
CLINICAL DATA: A 57-year-old female with BMI of 29.3, referred by Wendy Knox for possible split-night sleep study. She had a home sleep study that was inconclusive. She does have nocturnal hypoxemia and airways disease with a history of asthma /COPD. She is a smoker and is on oxygen 2 liters per minute. Her Rollins Sleepiness score is 18/24. SLEEP ARCHITECTURE: Total sleep period was 358.5 minutes. Total sleep time was 299 minutes divided between 285.5 minutes of non-REM sleep and 13.5 minutes of REM sleep. Sleep onset latency was 64 minutes. REM latency was 220 minutes. Sleep efficiency was 71%. Wake after sleep onset was 16 minutes. Sleep consisted of stage N1 8%, stage N2 77%, stage N3 11% and REM 5%. AROUSAL DATA: 75 arousals were recorded for an index of 15 per hour. 39 of the arousals were due to PLMs for an index of 8 per hour. PERIODIC LIMB MOVEMENT DATA: 285 limb movements during sleep were noted for an index of 57.2 per hour with arousal index of 7.8 per hour. RESPIRATORY DATA: There was no evidence of clinically significant sleep apnea. The AHI was 1.6. There were 4 obstructive apneic episodes. The longest apneic episode was 16.2 seconds. There were 4 hypopneic episodes. The mean duration of hypopnea was 17.1 seconds. OXIMETRY DATA: Nocturnal hypoxemia was seen. Oxygen subha was 79% during REM. Mean saturation was 87%. Time below 89% was 293.2 minutes. EKG: Heart rates ranged from 62-127 beats per minute. No arrhythmias were noted. MARRIAGE PERFORMER'S COMMENTS: The patient slept in the right, left, supine and prone positions. PLMs were noted and her legs were bothering her at the beginning of the study and she had a difficult time staying asleep because of leg discomfort. She had moderate snoring, rated 3 on a scale of 1-5. IMPRESSION: 1. No evidence of clinically significant sleep apnea/hypopnea. 2. Significant nocturnal hypoxemia. 3. Very frequent limb movements during sleep consistent with periodic limb movement disorder. RECOMMENDATIONS: The patient should continue to be treated with oxygen. Treatment for PLMD may be of benefit. Clinical correlation is needed. MTDD
== END | disposition home or self-care (01) ==
LOC: C.NEUR 20:00
PROVIDERS: ATTEND Nurse Practitioner Family
DX: J44.9 Chronic obstructive pulmonary disease, unspecified (principal); G47.34 Idiopathic sleep related nonobstructive alveolar hypoventilation; R09.02 Hypoxemia

== ENCOUNTER 2017-11-26 12:56 | Inpatient (IN) | payer BC, OTHER ==
[~2017-11-26] VITALS: Ht 154.9 cm; Wt 71.0 kg
[2017-11-26] MEDS ORDERED: ALBUTEROL 0.083% NEBU SOLN 3 ML VIAL INH STA (13:34)
[2017-11-26] MEDS ORDERED: SODIUM CHLORIDE 0.9% 1000ML 2,000 ML IV STA (13:34)
[2017-11-26] MEDS ORDERED: HYDROCODONE/HOMATROPINE SYRUP 5MG/1.5MG 5ML UDP PO STA (13:34)
[2017-11-26] MEDS ORDERED: METHYLPREDNISOLONE 125 MG VIAL IV STA (13:34)
[2017-11-26] MEDS ORDERED: LEVAQUIN 750MG / 150ML D5W IV STA (13:35)
[2017-11-26] MEDS ORDERED: ACETAMINOPHEN 500 MG TAB PO STA (13:35)
--- NOTE | 2017-11-26 13:57 | DIAGNOSTIC IMAGING REPORT ---
CHEST ONE VIEW PORTABLE CLINICAL HISTORY: Fever. COMPARISON STUDY: Chest radiograph January 16, 2017. FINDINGS: There is no pneumothorax or pleural effusion. There is no evidence for pulmonary edema. Cardiac size is normal. Mediastinal contours are normal. There is mild reticulonodular interstitial thickening within the right lower lung. There is no lobar consolidation. There is no cavitation. IMPRESSION: Mild right lower lung reticulonodular interstitial thickening which may reflect a mild infectious process such as bronchiolitis. Electronically signed by: Narciso Rajan M.D. 11/26/2017 1:56 PM Dictated Date/Time: 11/26/2017 1:54 PM
[2017-11-26 14:02] LABS: BASO % 0.2 %; BASO ABS # 0.02 K/uL (0-0.2); EOS % 0.2 %; EOS ABS # 0.02 K/uL (0-0.5); HEMATOCRIT 41.7 % (37-47); HEMOGLOBIN 14.2 g/dL (12.0-16.0); IG# 0.03 K/uL (0.00-0.02); LYMPH % 5.1 %; LYMPH ABS # 0.47 K/uL (1.2-3.4); MEAN CELL VOLUME 96.1 fL (80-100); MEAN CORPUSCULAR HEMOGLOBIN 32.7 pg (25-34); MEAN CORPUSCULAR HGB CONC 34.1 g/dl (32-36); MEAN PLATELET VOLUME 9.6 fL (7.4-10.4); MONO % 5.9 %; MONO ABS # 0.54 K/uL (0.11-0.59); NEUT % 88.3 %; NEUT ABS # 8.14 K/uL (1.4-6.5); PLATELET COUNT 161 K/uL (130-400); RED CELL DISTRIBUTION WIDTH CV 14.1 % (11.5-14.5); RED CELL DISTRIBUTION WIDTH SD 49.8 fL (36.4-46.3); WHITE BLOOD COUNT 9.22 K/uL (4.8-10.8)
[2017-11-26 14:20] LABS: ALBUMIN 3.7 gm/dl (3.4-5.0); ALT/SGPT 26 U/L (12-78); AST/SGOT 25 U/L (15-37); BLOOD UREA NITROGEN 12 mg/dl (7-18); CALCIUM 8.8 mg/dl (8.5-10.1); CARBON DIOXIDE 25 mmol/L (21-32); CREATININE 0.68 mg/dl (0.60-1.20); GLUCOSE 89 mg/dl (70-99); POTASSIUM 3.6 mmol/L (3.5-5.1); SODIUM 135 mmol/L (136-145)
[2017-11-26 14:25] LABS: ALKALINE PHOSPHATASE 81 U/L (45-117); CKMB 1.7 ng/ml (0.5-3.6); TOTAL PROTEIN 7.3 gm/dl (6.4-8.2)
[2017-11-26 14:33] LABS: ISTAT CREATININE 0.5 mg/dl (0.6-1.3); ISTAT IONIZED CALCIUM 1.06 mmol/l (1.12-1.32); ISTAT POTASSIUM 3.9 mEq/L (3.3-5.0)
[2017-11-26 14:53] LABS: PTT PATIENT 28.4 SECONDS (21.0-31.0)
[2017-11-26 14:55] LABS: INFLUENZA B ANTIGEN Neg for Influ B (NEG)
[2017-11-26] MEDS ORDERED: OSELTAMIVIR PHOSPHATE SUSP 75 MG/12.5 ML UDP PO ONE (15:00)
[2017-11-26] MEDS ORDERED: FLNIN/ NAE (15:06)
[2017-11-26] MEDS ORDERED: OSELTAMIVIR PHOSPHATE 75 MG CAP PO ONE (15:18)
[2017-11-26 17:00] VITALS: BP 122/70; PULSE 95; TEMP 36.8; O2SAT 91; Ht 154.9 cm; Wt 71.0 kg
[2017-11-26] MEDS ORDERED: MAGNESIUM HYDROXIDE SUSP 30 ML UDC PO PRN (17:00)
[2017-11-26] MEDS ORDERED: ONDANSETRON INJ 2 MG/ML 2 ML VIAL IV PRN (17:00)
[2017-11-26] MEDS ORDERED: ALUMINUM/MAGNESIUM/SIMETH (MAALOX MAX) 30 ML UDC PO PRN (17:00)
[2017-11-26] MEDS ORDERED: POLYETHYLENE (MIRALAX) 17 GM PACK PO PRN (17:00)
[2017-11-26] MEDS ORDERED: PIPERACILL/TAZOBAC CONSULT ACTIVE PRN (17:00)
[2017-11-26] MEDS ORDERED: LEVALBUTEROL/IPRATROPIUM NEB INH PRN (17:30)
[2017-11-26] MEDS ORDERED: PIPERACILL/TAZOBAC IV 3.375 GM in DEXTROSE 5% 100ML 100 ML IV SCH (18:00)
[2017-11-26] MEDS ORDERED: SODIUM CHLORIDE 0.9% 1000ML 1,000 ML IV SCH (18:20)
[2017-11-26] MEDS ORDERED: PIPERACILL/TAZOBAC IV 3.375 GM in DEXTROSE 5% 100ML IV ONE (18:30)
--- NOTE | 2017-11-26 18:34 | EMERGENCY ROOM VISIT NOTE ---
History Report prepared by Gerson: Rashaad Paige Under the Supervision of: Dr. Hossein Lerma D.O. First contact with patient: 13:26 Chief Complaint: FLU LIKE SX Stated Complaint: FLU LIKE SX History of Present Illness The patient is a 57 year old female who presents to the Emergency Room with complaints of moderate flu-like symptoms that began two days ago. She has a past medical history of COPD. At this time, the patient woke up in the morning and began to have intermittent episodes of vomiting. Yesterday, she thought she was febrile, but did not take her temperature. She then began to experience a headache, productive cough with yellow/clear sputum, and rhinorrhea. Recently, she has been experiencing diffuse body aches, some mild abdominal pain, shortness of breath, and some chest tightness that feels similarly to when her COPD exacerbations are severe. Pt denies headache, change in vision, fevers, nausea, diarrhea, pain with urination, and melena. Source of History: patient Onset: two days ago Position: other (Global) Symptom Intensity: moderate Quality: other (Flu-like symptoms) Timing: constant Associated Symptoms: + cough, + chest pain (tightness), + SOB, + vomiting, + abdominal pain, No fevers, No headache, No melena, No diarrhea, No urinary symptoms Note: She is experiencing body aches. Review of Systems See HPI for pertinent positives & negatives. A total of 10 systems reviewed and were otherwise negative. Past Medical & Surgical Medical Problems: (1) COPD (chronic obstructive pulmonary disease) (2) Fibromyalgia (3) HLD (hyperlipidemia) (4) HTN (hypertension) (5) Influenza A Surgical Problems: (1) No pertinent past surgical history Social History Problems: (1) Active smoker Family History Depression Diabetes mellitus Social History Smoking Status: Current Every Day Smoker Drug Use: none Marital Status: Housing Status: lives with family Occupation Status: unemployed Current/Historical Medications Scheduled Albuterol Hfa (Ventolin Hfa), 2 PUFFS INH Q4H Citalopram (Citalopram Hydrobromide), 40 MG PO DAILY Fluticasone Furoate-Vilanterol (Breo Ellipta), 1 PUFF INH QAM Omeprazole (Omeprazole), 1 TAB PO DAILY Umeclidinium [place] (Incruse Ellipta), 1 PUFF INH DAILY Scheduled PRN Albuterol Sulfate (Proair Respiclick), 2 PUFFS INH QID PRN for SOB/Wheezing Ibuprofen (Advil), 400-600 MG PO Q6H PRN for Pain Ipratropium-Albuterol (Duoneb), 1 TREATMENT INH Q6H PRN for SOB/Wheezing Allergies Coded Allergies: CHANTAL Inhibitors (Verified Allergy, Unknown, UNKNOWN RXN, 11/26/17) Zolpidem (Verified Adverse Reaction, Intermediate, other, 11/26/17) irritability, restless legs, wanted to wake up at night during sleep Physical Exam Vital Signs Date Time Temp Pulse Resp B/P (MAP) Pulse Ox O2 Delivery O2 Flow Rate FiO2 11/26/17 14:46 103 15 104/66 92 Nasal Cannula 2.0 11/26/17 14:07 110 11/26/17 13:27 93 Nasal Cannula 4.0 11/26/17 13:22 38.0 118 40 139/72 80 Room Air Physical Exam GENERAL: Sitting up in bed, dyspneic with conversation, significant distress, non-toxic EYE EXAM: normal conjunctiva. OROPHARYNX: no exudate, no erythema, lips, buccal mucosa, and tongue normal and mucous membranes are moist NECK: supple, no nuchal rigidity, no adenopathy, non-tender, no JVD LUNGS: Wheezing bilaterally. Normal chest wall mechanics HEART: Tachycardic rate with a regular rhythm, no murmurs, S1 normal and S2 normal ABDOMEN: abdomen soft, non-tender, normo-active bowel sounds, no masses, no rebound or guarding. BACK: Back is symmetrical on inspection and there is no deformity, no midline tenderness, no CVA tenderness. SKIN: no rashes and no bruising UPPER EXTREMITIES: upper extremities are grossly normal. LOWER EXTREMITIES: No pitting edema. NEURO EXAM: Normal sensorium, cranial nerves II-XII grossly intact, normal speech, no gross weakness of arms, no gross weakness of legs. Medical Decision & Procedures ER Provider Diagnostic Interpretation: Radiology results as stated below per my review and the radiologist's interpretation: CHEST ONE VIEW PORTABLE CLINICAL HISTORY: Fever. COMPARISON STUDY: Chest radiograph January 16, 2017. FINDINGS: There is no pneumothorax or pleural effusion. There is no evidence for pulmonary edema. Cardiac size is normal. Mediastinal contours are normal. There is mild reticulonodular interstitial thickening within the right lower lung. There is no lobar consolidation. There is no cavitation. IMPRESSION: Mild right lower lung reticulonodular interstitial thickening which may reflect a mild infectious process such as bronchiolitis. Electronically signed by: Narciso Rajan M.D. 11/26/2017 1:56 PM Dictated Date/Time: 11/26/2017 1:54 PM Laboratory Results 11/26/17 13:39 Red Blood Count 4.34, Mean Corpuscular Volume 96.1, Mean Corpuscular Hemoglobin 32.7, Mean Corpuscular Hemoglobin Concent 34.1, Mean Platelet Volume 9.6, Neutrophils (%) (Auto) 88.3, Lymphocytes (%) (Auto) 5.1, Monocytes (%) (Auto) 5.9, Eosinophils (%) (Auto) 0.2, Basophils (%) (Auto) 0.2, Neutrophils # (Auto) 8.14, Lymphocytes # (Auto) 0.47, Monocytes # (Auto) 0.54, Eosinophils # (Auto) 0.02, Basophils # (Auto) 0.02 11/26/17 13:39 Test 11/26/17 13:39 11/26/17 13:58 11/26/17 14:00 11/26/17 14:21 White Blood Count 9.22 K/uL (4.8-10.8) Red Blood Count 4.34 M/uL (4.2-5.4) Hemoglobin 14.2 g/dL (12.0-16.0) Hematocrit 41.7 % (37-47) Mean Corpuscular Volume 96.1 fL (80-100) Mean Corpuscular Hemoglobin 32.7 pg (25-34) Mean Corpuscular Hemoglobin Concent 34.1 g/dl (32-36) Platelet Count 161 K/uL (130-400) Mean Platelet Volume 9.6 fL (7.4-10.4) Neutrophils (%) (Auto) 88.3 % Lymphocytes (%) (Auto) 5.1 % Monocytes (%) (Auto) 5.9 % Eosinophils (%) (Auto) 0.2 % Basophils (%) (Auto) 0.2 % Neutrophils # (Auto) 8.14 K/uL (1.4-6.5) Lymphocytes # (Auto) 0.47 K/uL (1.2-3.4) Monocytes # (Auto) 0.54 K/uL (0.11-0.59) Eosinophils # (Auto) 0.02 K/uL (0-0.5) Basophils # (Auto) 0.02 K/uL (0-0.2) RDW Standard Deviation 49.8 fL (36.4-46.3) RDW Coefficient of Variation 14.1 % (11.5-14.5) Immature Granulocyte % (Auto) 0.3 % Immature Granulocyte # (Auto) 0.03 K/uL (0.00-0.02) Est Creatinine Clear Calc Drug Dose 80.2 ml/min Estimated GFR () 111.0 Estimated GFR (Non- 95.7 BUN/Creatinine Ratio 17.3 (10-20) Calcium Level 8.8 mg/dl (8.5-10.1) Magnesium Level 2.0 mg/dl (1.8-2.4) Total Bilirubin 0.4 mg/dl (0.2-1) Direct Bilirubin < 0.1 mg/dl (0-0.2) Aspartate Amino Transf (AST/SGOT) 25 U/L (15-37) Alanine Aminotransferase (ALT/SGPT) 26 U/L (12-78) Alkaline Phosphatase 81 U/L (45-117) Total Creatine Kinase 125 U/L (26-192) Creatine Kinase MB 1.7 ng/ml (0.5-3.6) Creatine Kinase MB Ratio 1.4 (0-3.0) Troponin I < 0.015 ng/ml (0-0.045) Total Protein 7.3 gm/dl (6.4-8.2) Albumin 3.7 gm/dl (3.4-5.0) Bedside Lactic Acid Venous 1.11 mmol/L (0.90-1.70) Influenza Type A Antigen POS for Influ A (NEG) Influenza Type B Antigen Neg for Influ B (NEG) Bedside Hemoglobin 15.3 g/dl (12.0-16.0) Bedside Hematocrit 45 % (37-47) Bedside Sodium 136 mEq/L (135-144) Bedside Potassium 3.9 mEq/L (3.3-5.0) Bedside Chloride 98 mEq/L (101-112) Bedside Total CO2 26 mEq/l (24-31) Anion Gap 16.0 mmol/L (16-25) Bedside Blood Urea Nitrogen 13 mg/dl (7-18) Bedside Creatinine 0.5 mg/dl (0.6-1.3) Bedside Glucose (other) 89 mg/dl (70-99) Bedside Ionized Calcium (Vincent) 1.06 mmol/l (1.12-1.32) Test 11/26/17 14:30 11/26/17 15:50 Prothrombin Time 10.5 SECONDS (9.0-12.0) Prothromb Time International Ratio 1.0 (0.9-1.1) Activated Partial Thromboplast Time 28.4 SECONDS (21.0-31.0) Partial Thromboplastin Ratio 1.1 Urine Color YELLOW Urine Appearance CLEAR (CLEAR) Urine pH 6.0 (4.5-7.5) Urine Specific [place] 1.020 (1.000-1.030) Urine Protein NEG (NEG) Urine Glucose (UA) NEG (NEG) Urine Ketones 2+ (NEG) Urine Occult Blood NEG (NEG) Urine Nitrite NEG (NEG) Urine Bilirubin NEG (NEG) Urine Urobilinogen NEG (NEG) Urine Leukocyte Esterase NEG (NEG) Urine Hyaline Casts (Auto) 0 /lpf (0-5) Urine RBC 0-4 /hpf (0-4) Urine WBC 0 /hpf (0-5) Urine Epithelial Cells 10-20 /lpf (0-5) Urine Bacteria NEG (NEG) Laboratory results per my review. Medications Administered Medications (Trade) Dose Ordered Sig/Rao Route Start Time Stop Time Status Last Admin Dose Admin Albuterol Sulfate (Ventolin 0.083% 2.5MG/3ML Neb) 5 mg NOW STAT INH 11/26/17 13:34 11/26/17 13:36 DC 11/26/17 13:53 5 MG Methylprednisolone Sodium Succinate (Solu-Medrol IV) 125 mg NOW STAT IV 11/26/17 13:34 11/26/17 13:36 DC 11/26/17 13:53 125 MG Sodium Chloride 2,000 ml @ 999 mls/hr Q2H1M STAT IV 11/26/17 13:34 11/26/17 15:34 DC 11/26/17 13:53 999 MLS/HR Hydrocodone Bit/ Homatropine Methylb (Hycodan Syrup) 5 ml NOW STAT PO 11/26/17 13:34 11/26/17 13:36 DC 11/26/17 13:54 5 ML Acetaminophen (Tylenol Tab) 1,000 mg NOW STAT PO 11/26/17 13:35 11/26/17 13:36 DC 11/26/17 13:53 1,000 MG Levofloxacin (Levaquin / D5W) 750 mg NOW STAT IV 11/26/17 13:35 11/26/17 13:36 DC 11/26/17 13:54 750 MG ECG Per My Interpretation Indication: tachycardia Rate (beats per minute): 115 Rhythm: sinus tachycardia Findings: ST depression (diffuse), other (Normal axis, prolonged QTC) ED Course ED COURSE: Vital signs were reviewed and showed tachycardia, hypoxia, and febrile The patients medical record was reviewed The above diagnostic studies were performed and reviewed. ED treatments and interventions as stated above. 1329: The patient was evaluated in room C6. A complete history and physical examination was performed. 1334: Ordered Hycodan Syrup 5 ml PO, Sodium Chloride 2000 ml @ 999 mls/hr IV, Solu-Medrol IV 125 mg IV, Albuterol Sulfate 5 mg INH 1335: Ordered Levofloxacin 750 mg IV, Tylenol Tab 1000 mg PO 1443: I updated the patient at this time. 1500: Ordered Tamiflu Susp 75 mg PO 1502: Upon reevaluation, the patient is resting.I discussed my findings with the patient and she understands and agrees with the treatment plan. Based on the patients age, coexisting illnesses, exam and lab findings the decision to treat as an inpatient was made. The patient remained stable while under my care. The patient will be evaluated by Leti Rich, for further management. Medical Decision Differential diagnoses includes but is not limited to pneumonia, bronchitis, COPD/Asthma exacerbation, pneumothorax, pulmonary embolism, congestive heart failure, acute coronary syndrome. Patient is a 57-year-old female who presents to ER in severe respiratory distress. Pulse ox was found to be 80% and she is tachycardic and febrile. She is dyspneic with conversation. She was given multiple nebs, steroids and antibiotics. Symptoms did improve significantly. She was positive for influenza. She remained on 4-5 L nasal cannula. She was admitted to internal medicine with likely COPD exacerbation secondary to influenza. Patient was monitored closely throughout her stay within the ER. Medication Reconcilliation Current Medication List: was personally reviewed by me Blood Pressure Screening Patient's blood pressure: Normal blood pressure Blood pressure disposition: Did not require urgent referral Consults Time Called: 1458 Consulting Physician: Leti Rich Hospitalist Returned Call: [phone] I reviewed the patient's case with her. She will evaluate the patient for further management. Impression Primary Impression: Influenza A Additional Impressions: Pneumonia Hypoxia COPD exacerbation Scribe Attestation The scribe's documentation has been prepared under my direction and personally reviewed by me in its entirety. I confirm that the note above accurately reflects all work, treatment, procedures, and medical decision making performed by me. Departure Information Dispostion Being Evaluated By Hospitalist Referrals Leigh Ann Lester D.O. (PCP) Patient Instructions [facility] Problem Qualifiers Additional Impressions: Pneumonia Pneumonia type: due to unspecified organism Laterality: unspecified laterality Lung location: unspecified part of lung Qualified Codes: J18.9 - Pneumonia, unspecified organism
[2017-11-26] MEDS ORDERED: LEVALBUTEROL 0.63MG/3 ML NEB INH PRN (18:45)
[2017-11-26] MEDS ORDERED: IPRATROPIUM BROMIDE NEB SOLN 0.02% 2.5 ML VIAL INH PRN (18:45)
[2017-11-26] MEDS: OSELTAMIVIR PHOSPHATE 75 MG CAP PO SCH (18:55)
[2017-11-26 19:30] VITALS: PULSE 93; O2SAT 90
[2017-11-26] MEDS: IPRATROPIUM BROMIDE NEB SOLN 0.02% 2.5 ML VIAL INH SCH (19:30)
[2017-11-26] MEDS: LEVALBUTEROL 1.25MG/0.5ML NEB INH SCH (19:30)
--- NOTE | 2017-11-26 20:03 | History and Physical ---
History & Physical Date & Time of Service: Nov 26, 2017 at 18:29 Chief Complaint: Influenza A Primary Care Physician: Leigh Ann Lester D.O. History of Present Illness Source: patient, clinic records, hospital records Pt is 57 y/o F with PMH COPD, nocturnal hypemia, depression, GERD, tobacco use presented to ER with c/o fever, increased SOB and cough. Pt reports 2 days ago started with myalgias, cough, increased SOB and tactile fever. Uses oxygen @2L HS chronically. Reports past couple of days has been checking pulse ox at home and sat's 86% and she has been using her oxygen throughout the day. Worsening symptoms today prompted ER visit. Reports granddaughter with URI symptoms recently. Pt states 2 days ago had couple episodes of vomiting and one of diarrhea which has since resolved. Denies PAGAN, dizziness, syncope, vision changes , neck pain, CP, orthopnea, palpitations,hemoptysis, choking, otalgia, abdominal pain, paresthesias, extremity edema, rashes, urinary symptoms. Past Medical/Surgical History Medical Problems: (1) COPD (chronic obstructive pulmonary disease) Status: Chronic (2) Depression Status: Chronic (3) Fibromyalgia Status: Chronic (4) GERD (gastroesophageal reflux disease) Status: Chronic (5) HLD (hyperlipidemia) Status: Chronic (6) HTN (hypertension) Status: Chronic Surgical Problems: (1) Hx of blepharoplasty Status: Resolved (2) No pertinent past surgical history Status: Chronic Social History Problems: (1) Active smoker Status: Chronic Family History Depression Diabetes mellitus Social History Smoking Status: Current Every Day Smoker (1-1.5ppd x 30 years) Smokeless Tobacco Use: No Alcohol Use: occasionally Drug Use: none Marital Status: Housing status: lives with family Occupational Status: unemployed Immunizations History of Influenza Vaccine: No Influenza Vaccine Date: Jul 25, 2008 History of Tetanus Vaccine?: No History of Pneumococcal: Yes History of Hepatitis B Vaccine: No Multi-Drug Resistant Organisms History of MDRO: No Allergies Coded Allergies: CHANTAL Inhibitors (Verified Allergy, Unknown, UNKNOWN RXN, 11/26/17) Zolpidem (Verified Adverse Reaction, Intermediate, other, 11/26/17) irritability, restless legs, wanted to wake up at night during sleep Home Medications Scheduled Albuterol Hfa (Ventolin Hfa), 2 PUFFS INH Q4H Citalopram (Citalopram Hydrobromide), 40 MG PO DAILY Fluticasone Furoate-Vilanterol (Breo Ellipta), 1 PUFF INH QAM Omeprazole (Omeprazole), 1 TAB PO DAILY Umeclidinium [place] (Incruse Ellipta), 1 PUFF INH DAILY Scheduled PRN Albuterol Sulfate (Proair Respiclick), 2 PUFFS INH QID PRN for SOB/Wheezing Ibuprofen (Advil), 400-600 MG PO Q6H PRN for Pain Ipratropium-Albuterol (Duoneb), 1 TREATMENT INH Q6H PRN for SOB/Wheezing Review of Systems See HPI for pertinent positives & negatives. All other systems reviewed and were otherwise negative Physical Exam Vital Signs Date Time Temp Pulse Resp B/P (MAP) Pulse Ox O2 Delivery O2 Flow Rate FiO2 11/26/17 17:00 36.8 95 20 122/70 91 Nasal Cannula 4.0 11/26/17 16:27 36.8 92 22 94 Nasal Cannula 4.0 11/26/17 15:53 94 20 130/71 94 Nasal Cannula 4.0 11/26/17 14:46 103 15 104/66 92 Nasal Cannula 2.0 11/26/17 14:07 110 11/26/17 13:27 93 Nasal Cannula 4.0 11/26/17 13:22 38.0 118 40 139/72 80 Room Air General Appearance: WD/WN, no apparent distress Head: normocephalic, atraumatic Eyes: normal inspection, PERRL, EOMI, sclerae normal ENT: hearing grossly normal, pharynx normal, + pertinent finding (mucous membranes moist) Neck: supple, no JVD, trachea midline Respiratory/Chest: no respiratory distress, no accessory muscle use, + decreased breath sounds, + wheezing Cardiovascular: regular rate, rhythm, no murmur, normal peripheral pulses Abdomen/GI: normal bowel sounds, non tender, soft Extremities/Musculoskelatal: normal inspection, normal capillary refill, no pedal edema, normal range of motion, non-tender Neurologic/Psych: alert, normal mood/affect, oriented x 3 Skin: normal color, warm/dry Diagnostics Laboratory Results Results Past 24 Hours Test 11/26/17 13:39 11/26/17 13:58 11/26/17 14:00 11/26/17 14:21 Range/Units White Blood Count 9.22 4.8-10.8 K/uL Red Blood Count 4.34 4.2-5.4 M/uL Hemoglobin 14.2 12.0-16.0 g/dL Hematocrit 41.7 37-47 % Mean Corpuscular Volume 96.1 80-100 fL Mean Corpuscular Hemoglobin 32.7 25-34 pg Mean Corpuscular Hemoglobin Concent 34.1 32-36 g/dl Platelet Count 161 130-400 K/uL Mean Platelet Volume 9.6 7.4-10.4 fL Neutrophils (%) (Auto) 88.3 % Lymphocytes (%) (Auto) 5.1 % Monocytes (%) (Auto) 5.9 % Eosinophils (%) (Auto) 0.2 % Basophils (%) (Auto) 0.2 % Neutrophils # (Auto) 8.14 1.4-6.5 K/uL Lymphocytes # (Auto) 0.47 1.2-3.4 K/uL Monocytes # (Auto) 0.54 0.11-0.59 K/uL Eosinophils # (Auto) 0.02 0-0.5 K/uL Basophils # (Auto) 0.02 0-0.2 K/uL RDW Standard Deviation 49.8 36.4-46.3 fL RDW Coefficient of Variation 14.1 11.5-14.5 % Immature Granulocyte % (Auto) 0.3 % Immature Granulocyte # (Auto) 0.03 0.00-0.02 K/uL Sodium Level 135 136-145 mmol/L Potassium Level 3.6 3.5-5.1 mmol/L Chloride Level 100 98-107 mmol/L Carbon Dioxide Level 25 21-32 mmol/L Anion Gap 10.0 16.0 16-25 mmol/L Blood Urea Nitrogen 12 7-18 mg/dl Creatinine 0.68 0.60-1.20 mg/dl Est Creatinine Clear Calc Drug Dose 80.2 ml/min Estimated GFR () 111.0 Estimated GFR (Non- 95.7 BUN/Creatinine Ratio 17.3 10-20 Random Glucose 89 70-99 mg/dl Calcium Level 8.8 8.5-10.1 mg/dl Magnesium Level 2.0 1.8-2.4 mg/dl Total Bilirubin 0.4 0.2-1 mg/dl Direct Bilirubin < 0.1 0-0.2 mg/dl Aspartate Amino Transf (AST/SGOT) 25 15-37 U/L Alanine Aminotransferase (ALT/SGPT) 26 12-78 U/L Alkaline Phosphatase 81 45-117 U/L Total Creatine Kinase 125 26-192 U/L Creatine Kinase MB 1.7 0.5-3.6 ng/ml Creatine Kinase MB Ratio 1.4 0-3.0 Troponin I < 0.015 0-0.045 ng/ml Total Protein 7.3 6.4-8.2 gm/dl Albumin 3.7 3.4-5.0 gm/dl Bedside Lactic Acid Venous 1.11 0.90-1.70 mmol/L Influenza Type A Antigen POS for Influ A NEG Influenza Type B Antigen Neg for Influ B NEG Bedside Hemoglobin 15.3 12.0-16.0 g/dl Bedside Hematocrit 45 37-47 % Bedside Sodium 136 135-144 mEq/L Bedside Potassium 3.9 3.3-5.0 mEq/L Bedside Chloride 98 101-112 mEq/L Bedside Total CO2 26 24-31 mEq/l Bedside Blood Urea Nitrogen 13 7-18 mg/dl Bedside Creatinine 0.5 0.6-1.3 mg/dl Bedside Glucose (other) 89 70-99 mg/dl Bedside Ionized Calcium (Vincent) 1.06 1.12-1.32 mmol/l Test 11/26/17 14:30 11/26/17 15:50 Range/Units Prothrombin Time 10.5 9.0-12.0 SECONDS Prothromb Time International Ratio 1.0 0.9-1.1 Activated Partial Thromboplast Time 28.4 21.0-31.0 SECONDS Partial Thromboplastin Ratio 1.1 Urine Color YELLOW Urine Appearance CLEAR CLEAR Urine pH 6.0 4.5-7.5 Urine Specific [place] 1.020 1.000-1.030 Urine Protein NEG NEG Urine Glucose (UA) NEG NEG Urine Ketones 2+ NEG Urine Occult Blood NEG NEG Urine Nitrite NEG NEG Urine Bilirubin NEG NEG Urine Urobilinogen NEG NEG Urine Leukocyte Esterase NEG NEG Urine Hyaline Casts (Auto) 0 0-5 /lpf Urine RBC 0-4 0-4 /hpf Urine WBC 0 0-5 /hpf Urine Epithelial Cells 10-20 0-5 /lpf Urine Bacteria NEG NEG Microbiology Results 11/26/17 Blood Culture, Received Pending 11/26/17 Blood Culture, Received Pending Diagnostic Radiology CXR: IMPRESSION: Mild right lower lung reticulonodular interstitial thickening which may reflect a mild infectious process such as bronchiolitis. EKG EKG: sinus tachycardia, non-specific ST changes anterior, lateral leads Impression Assessment and Plan HYPOXIA SECONDARY TO INFLUENZA AND COPD EXACERBATION POSSIBLE PNEUMONIA Pt with onset fever, myalgias, cough 2 days ago with increased SOB and hypoxia with home sat's in mid 80's on RA. In ER O2 sat 80% on RA up to 93% on 4L NC. T : 38. Pulse: 118. Negative POC lactic acid. Troponin negative. CXR: Mild right lower lung reticulonodular interstitial thickening which may reflect a mild infectious process such as bronchiolitis. Pt given zosyn, duoneb, solumedrol 125mg -tamilfu -zosyn -NSS 80ml/hr -xopenex/atrovent neb -supplemental O2, continue HS O2 -solumedrol 40mg QH -continue home inhalers -repeat labs in am GERD -continue PPI DEPRESSION/ANXIETY -continue celexa TOBACCO ABUSE -smoking cessation discussed -nicotine patch DVT Prophylaxis -SCDs Disposition admit med/surg Full Code Follows with Dr Lester for routine care Pt was seen with Dr Robbins. See addendum ATTENDING NOTE : pt seen and examined, care co -ordniated with Leti Zarate PA-C 57 yo F presented with hypoxia , cough flu like symptom Influenza A ag positive started on Tamiflu IV hydration Duo neb/IV steroids for COPD exacerbation Anisha Robbins MD Level of Care Med/Surg Advanced Directives Existing Living Will: No Existing Power of Equine Internship: No Resuscitation Status FULL RESUSCITATION VTE Prophylaxis VTE Risk Assessment Done? Y/N: Yes Risk Level: Moderate Given or contraindicated: SCD's Additional Copies To Leigh Ann Lester D.O.
[2017-11-26] MEDS ORDERED: LEVALBUTEROL/IPRATROPIUM NEB INH SCH (21:00)
[2017-11-26] MEDS: PIPERACILL/TAZOBAC IV 3.375 GM in DEXTROSE 5% 100ML IV SCH (22:34)
[2017-11-26] MEDS: METHYLPREDNISOLONE IV 40 MG in SYRINGE 0 ML IV SCH (22:34)
[2017-11-26] MEDS: GUAIFENESIN/CODEINE 100MG/10MG 5ML UDC PO PRN (22:37)
[2017-11-27] VITALS (8 sets, daily range): BP systolic 100–125; BP diastolic 65–85; PULSE 72–95; TEMP 36.7–37.1; O2SAT 93–97
[2017-11-27] MEDS: IPRATROPIUM BROMIDE NEB SOLN 0.02% 2.5 ML VIAL INH SCH ×4 (02:03→19:29)
[2017-11-27] MEDS: LEVALBUTEROL 1.25MG/0.5ML NEB INH SCH ×4 (02:03→19:29)
[2017-11-27] MEDS: ACETAMINOPHEN 325 MG TAB PO PRN ×3 (04:03→20:34)
[2017-11-27] MEDS: METHYLPREDNISOLONE IV 40 MG in SYRINGE 0 ML IV SCH ×3 (06:22→20:22)
[2017-11-27] MEDS: PIPERACILL/TAZOBAC IV 3.375 GM in DEXTROSE 5% 100ML IV SCH (06:23)
[2017-11-27 07:03] LABS: HEMATOCRIT 38.2 % (37-47); HEMOGLOBIN 12.9 g/dL (12.0-16.0); MEAN CORPUSCULAR HEMOGLOBIN 32.7 pg (25-34); MEAN CORPUSCULAR HGB CONC 33.8 g/dl (32-36); MEAN PLATELET VOLUME 9.8 fL (7.4-10.4); PLATELET COUNT 160 K/uL (130-400); RED CELL DISTRIBUTION WIDTH SD 49.7 fL (36.4-46.3); WHITE BLOOD COUNT 7.51 K/uL (4.8-10.8)
[2017-11-27 07:39] LABS: CALCIUM 7.9 mg/dl (8.5-10.1); CREATININE 0.66 mg/dl (0.60-1.20); POTASSIUM 3.7 mmol/L (3.5-5.1)
[2017-11-27] MEDS: OSELTAMIVIR PHOSPHATE 75 MG CAP PO SCH ×2 (08:00→20:00)
[2017-11-27] MEDS ORDERED: PANTOprazole SOD 40 MG TAB PO SCH (08:00)
[2017-11-27] MEDS: CITALOPRAM 40 MG TAB PO SCH (09:20)
[2017-11-27] MEDS: NICOTINE 21 MG/24 HR TDSY TD SCH (09:21)
[2017-11-27] MEDS: UMECLIDINIUM BROMIDE 62.5MCG/INH INH SCH (09:26)
[2017-11-27] MEDS: FLUTICASONE FUROATE-VILANTEROL 200/25 MCG INH INH SCH (09:27)
[2017-11-27] MEDS: GUAIFENESIN/CODEINE 100MG/10MG 5ML UDC PO PRN (13:45)
[2017-11-27] MEDS: CEFTRIAXONE SOD INJ 1000 MG in DEXTROSE 5% 50ML IV SCH (14:11)
[2017-11-27] MEDS: AZITHROMYCIN 500 MG / D5W 250 ML IV SCH ×2 (15:25)
--- NOTE | 2017-11-27 17:19 | Progress Note ---
Internal Med Progress Note Date of Service: Nov 27, 2017. Provider Documentation: SUBJECTIVE: The patient was seen and examined Admitted with Flu and Pneumonia Clinically not any better yet OBJECTIVE: Vital Signs-as noted below Exam: General-Moderate distress at rest Eyes-Normal ENT-Normal Neck-Supple Lungs-Decreased breaths sound bilaterally Minimal wheezing Heart-Regular. no murmur appreciated Abdomen-Benign,no masses,bowel sound present Extremities-Trace edema bilaterally Neuro-AAOx3 Lab data as noted below. ASSESSMENT & PLAN: Pt is 57 y/o F with PMH COPD, nocturnal hypoxemia, depression, GERD, tobacco use presented to ER with c/o fever, increased SOB and cough. Pt reports 2 days ago started with myalgias, cough, increased SOB and tactile fever. Uses oxygen @ 2L HS chronically. Negative POC lactic acid. Troponin negative. CXR: Mild right lower lung reticulonodular interstitial thickening which may reflect a mild infectious process such as bronchiolitis. HYPOXIA SECONDARY TO INFLUENZA AND COPD EXACERBATION POSSIBLE PNEUMONIA Started on Zosyn, DuoNeb, and Solumedrol and Tamiflu Supplemental O2, continue HS O2 Continue home inhalers Clinically a little better today GERD Continue PPI DEPRESSION/ANXIETY Continue Celexa TOBACCO ABUSE Smoking cessation discussed Nicotine patch DVT Prophylaxis -SCDs Disposition admit med/surg Full Code Follows with Dr Lester for routine care Vital Signs: Date Time Temp Pulse Resp B/P (MAP) Pulse Ox O2 Delivery O2 Flow Rate FiO2 11/27/17 16:08 36.7 72 17 100/65 (77) 97 Nasal Cannula 3.0 11/27/17 14:02 95 18 93 Nasal Cannula 3.0 11/27/17 10:48 97 Nasal Cannula 2.0 11/27/17 08:06 36.8 75 18 110/68 (82) 97 Nasal Cannula 2.0 11/27/17 07:15 82 18 97 Nasal Cannula 3.0 11/27/17 02:03 85 18 94 Nasal Cannula 3.0 11/27/17 00:00 37.1 81 18 125/85 (98) 94 Nasal Cannula 3.0 11/27/17 00:00 95 Nasal Cannula 3.0 11/26/17 19:30 93 20 90 Nasal Cannula 4.0 Lab Results: Results Past 24 Hours Test 11/27/17 06:28 Range/Units White Blood Count 7.51 4.8-10.8 K/uL Red Blood Count 3.94 4.2-5.4 M/uL Hemoglobin 12.9 12.0-16.0 g/dL Hematocrit 38.2 37-47 % Mean Corpuscular Volume 97.0 80-100 fL Mean Corpuscular Hemoglobin 32.7 25-34 pg Mean Corpuscular Hemoglobin Concent 33.8 32-36 g/dl RDW Standard Deviation 49.7 36.4-46.3 fL RDW Coefficient of Variation 14.0 11.5-14.5 % Platelet Count 160 130-400 K/uL Mean Platelet Volume 9.8 7.4-10.4 fL Sodium Level 139 136-145 mmol/L Potassium Level 3.7 3.5-5.1 mmol/L Chloride Level 106 98-107 mmol/L Carbon Dioxide Level 27 21-32 mmol/L Anion Gap 6.0 3-11 mmol/L Blood Urea Nitrogen 11 7-18 mg/dl Creatinine 0.66 0.60-1.20 mg/dl Est Creatinine Clear Calc Drug Dose 82.7 ml/min Estimated GFR () 112.1 Estimated GFR (Non- 96.7 BUN/Creatinine Ratio 16.5 10-20 Random Glucose 125 70-99 mg/dl Calcium Level 7.9 8.5-10.1 mg/dl Magnesium Level 2.1 1.8-2.4 mg/dl
[2017-11-28] VITALS (8 sets, daily range): BP systolic 107–149; BP diastolic 69–85; PULSE 77–90; TEMP 36.6–37; O2SAT 80–97
[2017-11-28] MEDS: IPRATROPIUM BROMIDE NEB SOLN 0.02% 2.5 ML VIAL INH SCH ×4 (02:06→19:40)
[2017-11-28] MEDS: LEVALBUTEROL 1.25MG/0.5ML NEB INH SCH ×4 (02:06→19:40)
[2017-11-28] MEDS: METHYLPREDNISOLONE IV 40 MG in SYRINGE 0 ML IV SCH ×3 (06:26→22:05)
[2017-11-28] MEDS: GUAIFENESIN/CODEINE 100MG/10MG 5ML UDC PO PRN ×3 (07:19→22:05)
[2017-11-28] MEDS: UMECLIDINIUM BROMIDE 62.5MCG/INH INH SCH (07:20)
[2017-11-28] MEDS: FLUTICASONE FUROATE-VILANTEROL 200/25 MCG INH INH SCH (07:21)
[2017-11-28] MEDS: OSELTAMIVIR PHOSPHATE 75 MG CAP PO SCH ×2 (08:00→20:00)
[2017-11-28 08:35] LABS: CREATININE 0.61 mg/dl (0.60-1.20); POTASSIUM 4.2 mmol/L (3.5-5.1)
[2017-11-28] MEDS: CITALOPRAM 40 MG TAB PO SCH (09:04)
[2017-11-28] MEDS: NICOTINE 21 MG/24 HR TDSY TD SCH (09:04)
[2017-11-28] MEDS: PANTOprazole SOD 40 MG TAB PO SCH (09:04)
[2017-11-28] MEDS: ACETAMINOPHEN 325 MG TAB PO PRN ×2 (14:36→22:06)
[2017-11-28] MEDS: CEFTRIAXONE SOD INJ 1000 MG in DEXTROSE 5% 50ML IV SCH (14:47)
[2017-11-28] MEDS: AZITHROMYCIN 500 MG / D5W 250 ML IV SCH ×2 (16:52)
--- NOTE | 2017-11-28 17:40 | Progress Note ---
Internal Med Progress Note Date of Service: Nov 28, 2017. Provider Documentation: SUBJECTIVE: The patient was seen and examined Admitted with Flu and Pneumonia Clinically a little better today OBJECTIVE: Vital Signs-as noted below Exam: General-Moderate distress at rest Eyes-Normal ENT-Normal Neck-Supple Lungs-Decreased breaths sound bilaterally Minimal wheezing Heart-Regular. no murmur appreciated Abdomen-Benign,no masses,bowel sound present Extremities-Trace edema bilaterally Neuro-AAOx3 Lab data as noted below. ASSESSMENT & PLAN: Pt is 57 y/o F with PMH COPD, nocturnal hypoxemia, depression, GERD, tobacco use presented to ER with c/o fever, increased SOB and cough. Pt reports 2 days ago started with myalgias, cough, increased SOB and tactile fever. Uses oxygen @ 2L HS chronically. Negative POC lactic acid. Troponin negative. CXR: Mild right lower lung reticulonodular interstitial thickening which may reflect a mild infectious process such as bronchiolitis. HYPOXIA SECONDARY TO INFLUENZA AND COPD EXACERBATION POSSIBLE PNEUMONIA Started on Azithromycin,Ceftriaxone , DuoNeb, and Solumedrol and Tamiflu Supplemental O2, continue HS O2 Continue home inhalers Remains stable ,minimal improvement Increase ambulation GERD Continue PPI DEPRESSION/ANXIETY Continue Celexa TOBACCO ABUSE Smoking cessation discussed Nicotine patch DVT Prophylaxis -SCDs Disposition admit med/surg Full Code Follows with Dr eLster for routine care Vital Signs: Date Time Temp Pulse Resp B/P (MAP) Pulse Ox O2 Delivery O2 Flow Rate FiO2 11/28/17 16:05 36.9 79 18 107/69 (82) 97 Nasal Cannula 2.5 11/28/17 14:23 77 18 97 Nasal Cannula 3.0 11/28/17 08:00 Nasal Cannula 3.0 11/28/17 07:54 36.6 90 22 149/81 (103) 91 Nasal Cannula 3.0 11/28/17 07:14 78 18 96 Nasal Cannula 3.0 11/28/17 02:06 89 18 80 Room Air 11/28/17 00:20 37.0 77 20 113/75 (88) 97 Nasal Cannula 3.0 11/28/17 00:05 Nasal Cannula 2.0 11/27/17 19:29 95 18 95 Nasal Cannula 3.0 Lab Results: Results Past 24 Hours Test 11/28/17 07:25 Range/Units Sodium Level 140 136-145 mmol/L Potassium Level 4.2 3.5-5.1 mmol/L Chloride Level 106 98-107 mmol/L Carbon Dioxide Level 28 21-32 mmol/L Anion Gap 6.0 3-11 mmol/L Blood Urea Nitrogen 13 7-18 mg/dl Creatinine 0.61 0.60-1.20 mg/dl Est Creatinine Clear Calc Drug Dose 89.4 ml/min Estimated GFR () 115.0 Estimated GFR (Non- 99.2 BUN/Creatinine Ratio 21.8 10-20 Random Glucose 115 70-99 mg/dl Calcium Level 9.0 8.5-10.1 mg/dl Magnesium Level 2.5 1.8-2.4 mg/dl
[2017-11-29] VITALS (7 sets, daily range): BP systolic 128–147; BP diastolic 82–86; PULSE 72–89; TEMP 36.8–36.9; O2SAT 94–97
[2017-11-29] MEDS: LEVALBUTEROL 1.25MG/0.5ML NEB INH SCH ×5 (01:44→23:22)
[2017-11-29] MEDS: IPRATROPIUM BROMIDE NEB SOLN 0.02% 2.5 ML VIAL INH SCH ×5 (01:44→23:22)
[2017-11-29] MEDS: GUAIFENESIN/CODEINE 100MG/10MG 5ML UDC PO PRN ×2 (06:23→22:00)
[2017-11-29] MEDS: METHYLPREDNISOLONE IV 40 MG in SYRINGE 0 ML IV SCH (06:28)
[2017-11-29 07:22] LABS: CALCIUM 8.7 mg/dl (8.5-10.1); CREATININE 0.55 mg/dl (0.60-1.20); POTASSIUM 3.8 mmol/L (3.5-5.1)
[2017-11-29] MEDS: OSELTAMIVIR PHOSPHATE 75 MG CAP PO SCH ×2 (08:00→19:35)
[2017-11-29] MEDS: PANTOprazole SOD 40 MG TAB PO SCH (08:04)
[2017-11-29] MEDS: CITALOPRAM 40 MG TAB PO SCH (08:04)
[2017-11-29] MEDS: FLUTICASONE FUROATE-VILANTEROL 200/25 MCG INH INH SCH (08:04)
[2017-11-29] MEDS: UMECLIDINIUM BROMIDE 62.5MCG/INH INH SCH (08:04)
[2017-11-29] MEDS: NICOTINE 21 MG/24 HR TDSY TD SCH (08:05)
--- NOTE | 2017-11-29 14:07 | Progress Note ---
Internal Med Progress Note Date of Service: Nov 29, 2017. Provider Documentation: SUBJECTIVE: The patient was seen and examined Admitted with Flu and Pneumonia Clinically much better Could not sleep last night OBJECTIVE: Vital Signs-as noted below Exam: General-Moderate distress at rest Eyes-Normal ENT-Normal Neck-Supple Lungs-Decreased breaths sound bilaterally Minimal wheezing but slight improvement in breath sound Heart-Regular. no murmur appreciated Abdomen-Benign,no masses,bowel sound present Extremities-Trace edema bilaterally Neuro-AAOx3 Lab data as noted below. ASSESSMENT & PLAN: Pt is 57 y/o F with PMH COPD, nocturnal hypoxemia, depression, GERD, tobacco use presented to ER with c/o fever, increased SOB and cough. Pt reports 2 days ago started with myalgias, cough, increased SOB and tactile fever. Uses oxygen @ 2L HS chronically. Negative POC lactic acid. Troponin negative. CXR: Mild right lower lung reticulonodular interstitial thickening which may reflect a mild infectious process such as bronchiolitis. HYPOXIA SECONDARY TO INFLUENZA AND COPD EXACERBATION POSSIBLE PNEUMONIA Started on Azithromycin,Ceftriaxone , DuoNeb, and Solumedrol and Tamiflu Supplemental O2, continue HS O2 Continue home inhalers Remains stable ,minimal improvement Increase ambulation Clinically better Solumedrol changed to Orap Prednisone from 11/30 GERD Continue PPI DEPRESSION/ANXIETY Continue Celexa TOBACCO ABUSE Smoking cessation discussed Nicotine patch DVT Prophylaxis -SCDs Disposition admit med/surg Full Code Follows with Dr Lester for routine care Vital Signs: Date Time Temp Pulse Resp B/P (MAP) Pulse Ox O2 Delivery O2 Flow Rate FiO2 11/29/17 08:10 72 18 97 Nasal Cannula 2.0 11/29/17 08:00 Room Air 2.0 Nasal Cannula 11/29/17 07:38 36.9 75 18 128/82 (97) 96 Nasal Cannula 3.0 11/29/17 01:44 74 18 97 Nasal Cannula 3.0 11/29/17 00:05 Nasal Cannula 3.0 11/28/17 23:56 36.9 78 20 132/85 (101) 97 Nasal Cannula 3.0 11/28/17 19:40 80 18 97 Nasal Cannula 3.0 11/28/17 16:05 36.9 79 18 107/69 (82) 97 Nasal Cannula 2.5 11/28/17 16:00 Nasal Cannula 3.0 11/28/17 14:23 77 18 97 Nasal Cannula 3.0 Lab Results: Results Past 24 Hours Test 11/29/17 06:23 Range/Units Sodium Level 136 136-145 mmol/L Potassium Level 3.8 3.5-5.1 mmol/L Chloride Level 103 98-107 mmol/L Carbon Dioxide Level 25 21-32 mmol/L Anion Gap 8.0 3-11 mmol/L Blood Urea Nitrogen 15 7-18 mg/dl Creatinine 0.55 0.60-1.20 mg/dl Est Creatinine Clear Calc Drug Dose 99.2 ml/min Estimated GFR () 119.0 Estimated GFR (Non- 102.7 BUN/Creatinine Ratio 27.2 10-20 Random Glucose 114 70-99 mg/dl Calcium Level 8.7 8.5-10.1 mg/dl Magnesium Level 2.4 1.8-2.4 mg/dl
[2017-11-29] MEDS: CEFTRIAXONE SOD INJ 1000 MG in DEXTROSE 5% 50ML IV SCH (14:26)
[2017-11-29] MEDS: AZITHROMYCIN 500 MG / D5W 250 ML IV SCH ×2 (15:20)
[2017-11-30] VITALS (7 sets, daily range): BP systolic 122–149; BP diastolic 75–94; PULSE 66–85; TEMP 36.8–36.9; O2SAT 90–96
[2017-11-30] MEDS: IPRATROPIUM BROMIDE NEB SOLN 0.02% 2.5 ML VIAL INH SCH ×5 (03:00→23:06)
[2017-11-30] MEDS: LEVALBUTEROL 1.25MG/0.5ML NEB INH SCH ×5 (03:00→23:06)
[2017-11-30] MEDS: OSELTAMIVIR PHOSPHATE 75 MG CAP PO SCH ×2 (07:54→19:52)
[2017-11-30] MEDS: UMECLIDINIUM BROMIDE 62.5MCG/INH INH SCH (07:58)
[2017-11-30] MEDS: NICOTINE 21 MG/24 HR TDSY TD SCH (07:58)
[2017-11-30] MEDS: CITALOPRAM 40 MG TAB PO SCH (07:58)
[2017-11-30] MEDS: FLUTICASONE FUROATE-VILANTEROL 200/25 MCG INH INH SCH (07:58)
[2017-11-30] MEDS: PANTOprazole SOD 40 MG TAB PO SCH (07:58)
[2017-11-30 09:35] LABS: CALCIUM 8.8 mg/dl (8.5-10.1); CREATININE 0.67 mg/dl (0.60-1.20)
[2017-11-30 09:45] LABS: POTASSIUM 3.2 mmol/L (3.5-5.1)
[2017-11-30] MEDS ORDERED: POTASSIUM CHLORIDE 10 MEQ TABCR PO ONE (11:00)
--- NOTE | 2017-11-30 13:16 | Progress Note ---
Internal Med Progress Note Date of Service: Nov 30, 2017. Provider Documentation: SUBJECTIVE: The patient was seen and examined Admitted with Flu and Pneumonia Clinically much better Slept well last night OBJECTIVE: Vital Signs-as noted below Exam: General-Moderate distress at rest Eyes-Normal ENT-Normal Neck-Supple Lungs-Decreased breaths sound bilaterally -improves a lot Minimal wheezing but slight improvement in breath sound Heart-Regular. no murmur appreciated Abdomen-Benign,no masses,bowel sound present Extremities-Trace edema bilaterally Neuro-AAOx3 Lab data as noted below. ASSESSMENT & PLAN: Pt is 57 y/o F with PMH COPD, nocturnal hypoxemia, depression, GERD, tobacco use presented to ER with c/o fever, increased SOB and cough. Pt reports 2 days ago started with myalgias, cough, increased SOB and tactile fever. Uses oxygen @ 2L HS chronically. Negative POC lactic acid. Troponin negative. CXR: Mild right lower lung reticulonodular interstitial thickening which may reflect a mild infectious process such as bronchiolitis. HYPOXIA SECONDARY TO INFLUENZA AND COPD EXACERBATION POSSIBLE PNEUMONIA Started on Azithromycin,Ceftriaxone , DuoNeb, and Solumedrol and Tamiflu Supplemental O2, continue HS O2 Continue home inhalers Remains stable ,minimal improvement Increase ambulation Clinically better Solumedrol changed to Orap Prednisone from 11/30 Much better today Increase ambulation GERD Continue PPI DEPRESSION/ANXIETY Continue Celexa TOBACCO ABUSE Smoking cessation discussed Nicotine patch DVT Prophylaxis -SCDs Disposition admit med/surg Full Code Follows with Dr Lester for routine care Likely discharge to [facility] Vital Signs: Date Time Temp Pulse Resp B/P (MAP) Pulse Ox O2 Delivery O2 Flow Rate FiO2 11/30/17 08:00 Room Air 2.0 Nasal Cannula 11/30/17 07:39 66 16 94 Nasal Cannula 2.0 11/30/17 07:37 36.9 74 20 122/77 (92) 90 Room Air 11/30/17 00:20 36.8 85 18 149/94 (112) 96 Nasal Cannula 2.0 11/30/17 00:05 Nasal Cannula 3.0 11/29/17 23:22 85 18 96 Nasal Cannula 2.0 11/29/17 20:05 Nasal Cannula 3.0 11/29/17 19:08 85 18 96 Nasal Cannula 2.0 11/29/17 16:00 Room Air 2.0 Nasal Cannula 11/29/17 15:58 36.8 89 18 147/86 (106) 94 Nasal Cannula 2.0 11/29/17 14:32 84 18 96 Nasal Cannula 2.0 Lab Results: Results Past 24 Hours Test 11/30/17 08:26 Range/Units Sodium Level 139 136-145 mmol/L Potassium Level 3.2 3.5-5.1 mmol/L Chloride Level 102 98-107 mmol/L Carbon Dioxide Level 31 21-32 mmol/L Anion Gap 6.0 3-11 mmol/L Blood Urea Nitrogen 18 7-18 mg/dl Creatinine 0.67 0.60-1.20 mg/dl Est Creatinine Clear Calc Drug Dose 81.4 ml/min Estimated GFR () 111.5 Estimated GFR (Non- 96.2 BUN/Creatinine Ratio 27.1 10-20 Random Glucose 81 70-99 mg/dl Calcium Level 8.8 8.5-10.1 mg/dl Magnesium Level 2.3 1.8-2.4 mg/dl
[2017-11-30] MEDS: CEFTRIAXONE SOD INJ 1000 MG in DEXTROSE 5% 50ML IV SCH (13:50)
[2017-11-30] MEDS: AZITHROMYCIN 500 MG / D5W 250 ML IV SCH ×2 (14:50)
[2017-12-01] VITALS: BP 141/90; PULSE 84; TEMP 36.8; O2SAT 97
[2017-12-01 03:24] VITALS: PULSE 77; O2SAT 95
[2017-12-01] MEDS: LEVALBUTEROL 1.25MG/0.5ML NEB INH SCH ×3 (03:24→14:19)
[2017-12-01] MEDS: IPRATROPIUM BROMIDE NEB SOLN 0.02% 2.5 ML VIAL INH SCH ×3 (03:24→14:19)
[2017-12-01 06:45] LABS: HEMATOCRIT 40.5 % (37-47); HEMOGLOBIN 14.1 g/dL (12.0-16.0); MEAN CELL VOLUME 94.6 fL (80-100); MEAN CORPUSCULAR HEMOGLOBIN 32.9 pg (25-34); MEAN CORPUSCULAR HGB CONC 34.8 g/dl (32-36); MEAN PLATELET VOLUME 9.7 fL (7.4-10.4); PLATELET COUNT 174 K/uL (130-400); RED CELL DISTRIBUTION WIDTH CV 13.6 % (11.5-14.5); RED CELL DISTRIBUTION WIDTH SD 46.7 fL (36.4-46.3); WHITE BLOOD COUNT 6.33 K/uL (4.8-10.8)
[2017-12-01 07:21] VITALS: PULSE 66; O2SAT 97
[2017-12-01 07:28] LABS: CALCIUM 8.5 mg/dl (8.5-10.1); CREATININE 0.62 mg/dl (0.60-1.20); PHOSPHORUS 3.2 mg/dl (2.5-4.9); POTASSIUM 3.5 mmol/L (3.5-5.1)
[2017-12-01 07:30] VITALS: BP 145/92; PULSE 68; TEMP 36.8; O2SAT 94
[2017-12-01] MEDS ORDERED: AZITHROMYCIN 250 MG TAB PO SCH (08:00)
[2017-12-01] MEDS: OSELTAMIVIR PHOSPHATE 75 MG CAP PO SCH (08:00)
[2017-12-01] MEDS: PANTOprazole SOD 40 MG TAB PO SCH (08:27)
[2017-12-01] MEDS: CITALOPRAM 40 MG TAB PO SCH (08:27)
[2017-12-01] MEDS: NICOTINE 21 MG/24 HR TDSY TD SCH (08:28)
[2017-12-01] MEDS: FLUTICASONE FUROATE-VILANTEROL 200/25 MCG INH INH SCH (08:28)
[2017-12-01] MEDS: UMECLIDINIUM BROMIDE 62.5MCG/INH INH SCH (08:28)
--- NOTE | 2017-12-01 13:46 | Progress Note ---
Internal Med Progress Note Date of Service: Dec 01, 2017. Provider Documentation: SUBJECTIVE: The patient was seen and examined Admitted with Flu and Pneumonia Clinically much better Slept well last night Much better today Ambulating well and Ready to be discharged OBJECTIVE: Vital Signs-as noted below Exam: General-Moderate distress at rest Eyes-Normal ENT-Normal Neck-Supple Lungs-Decreased breaths sound bilaterally -improves a lot Minimal wheezing but slight improvement in breath sound Heart-Regular. no murmur appreciated Abdomen-Benign,no masses,bowel sound present Extremities-Trace edema bilaterally Neuro-AAOx3 Lab data as noted below. ASSESSMENT & PLAN: Pt is 57 y/o F with PMH COPD, nocturnal hypoxemia, depression, GERD, tobacco use presented to ER with c/o fever, increased SOB and cough. Pt reports 2 days ago started with myalgias, cough, increased SOB and tactile fever. Uses oxygen @ 2L HS chronically. Negative POC lactic acid. Troponin negative. CXR: Mild right lower lung reticulonodular interstitial thickening which may reflect a mild infectious process such as bronchiolitis. HYPOXIA SECONDARY TO INFLUENZA AND COPD EXACERBATION POSSIBLE PNEUMONIA Started on Azithromycin,Ceftriaxone , DuoNeb, and Solumedrol and Tamiflu Supplemental O2, continue HS O2 Continue home inhalers Remains stable ,minimal improvement Increase ambulation Clinically better Solumedrol changed to Orap Prednisone from 11/30 Much better today Increase ambulation -doing better without any desaturation Has Nighttime O2 at home GERD Continue PPI DEPRESSION/ANXIETY Continue Celexa TOBACCO ABUSE Smoking cessation discussed Nicotine patch DVT Prophylaxis -SCDs Disposition admit med/surg Full Code Follows with Dr Lester for routine care Likely discharge today Vital Signs: Date Time Temp Pulse Resp B/P (MAP) Pulse Ox O2 Delivery O2 Flow Rate FiO2 12/01/17 08:00 Room Air 2.0 Nasal Cannula 12/01/17 07:30 36.8 68 18 145/92 (109) 94 Nasal Cannula 2.0 12/01/17 07:21 66 16 97 Nasal Cannula 2.0 12/01/17 03:24 77 16 95 Room Air 12/01/17 00:00 36.8 84 18 141/90 (107) 97 Nasal Cannula 2.0 11/30/17 23:07 74 16 94 Room Air 11/30/17 20:05 Nasal Cannula 2.0 11/30/17 19:45 74 16 94 Room Air 11/30/17 16:00 Room Air 2.0 Nasal Cannula 11/30/17 15:28 36.8 85 18 132/75 (94) 93 Room Air 11/30/17 14:23 77 16 96 Nasal Cannula 2.0 Lab Results: Results Past 24 Hours Test 12/01/17 06:34 Range/Units White Blood Count 6.33 4.8-10.8 K/uL Red Blood Count 4.28 4.2-5.4 M/uL Hemoglobin 14.1 12.0-16.0 g/dL Hematocrit 40.5 37-47 % Mean Corpuscular Volume 94.6 80-100 fL Mean Corpuscular Hemoglobin 32.9 25-34 pg Mean Corpuscular Hemoglobin Concent 34.8 32-36 g/dl RDW Standard Deviation 46.7 36.4-46.3 fL RDW Coefficient of Variation 13.6 11.5-14.5 % Platelet Count 174 130-400 K/uL Mean Platelet Volume 9.7 7.4-10.4 fL Sodium Level 139 136-145 mmol/L Potassium Level 3.5 3.5-5.1 mmol/L Chloride Level 104 98-107 mmol/L Carbon Dioxide Level 28 21-32 mmol/L Anion Gap 7.0 3-11 mmol/L Blood Urea Nitrogen 15 7-18 mg/dl Creatinine 0.62 0.60-1.20 mg/dl Est Creatinine Clear Calc Drug Dose 88.0 ml/min Estimated GFR () 114.4 Estimated GFR (Non- 98.7 BUN/Creatinine Ratio 24.9 10-20 Random Glucose 81 70-99 mg/dl Calcium Level 8.5 8.5-10.1 mg/dl Phosphorus Level 3.2 2.5-4.9 mg/dl Magnesium Level 2.3 1.8-2.4 mg/dl Chemistry Specimen Hemolysis
[2017-12-01] MEDS ORDERED: PRED10TA PO (13:57)
[2017-12-01] MEDS ORDERED: NICO21DI4 TD (13:57)
[2017-12-01] MEDS: CEFTRIAXONE SOD INJ 1000 MG in DEXTROSE 5% 50ML IV SCH (14:00)
--- NOTE | 2017-12-01 14:00 | Discharge Instructions ---
Discharge Instructions Date of Service Dec 01, 2017. Admission Reason for Admission: Influenza A Discharge Discharge Diagnosis / Problem: COPD exacerbation,Influenza A Discharge Goals Goal(s): Prevent Disease Progression Activity Recommendations Activity Limitations: resume your previous activity . Instructions / Follow-Up Instructions / Follow-Up Dr Nicole on at 12:45 PM ( Dr Lester is away) Current Hospital Diet Patient's current hospital diet: AHA Diet (Heart Healthy) Discharge Diet Recommended Diet: AHA Diet (Heart Healthy) Pending Studies Studies pending at discharge: no Medical Emergencies . Who to Call and When: Medical Emergencies: If at any time you feel your situation is an emergency, please call 911 immediately. . Non-Emergent Contact Non-Emergency issues call your: Primary Care Provider . Past History Medical & Surgical History: (1) COPD (chronic obstructive pulmonary disease) (2) COPD exacerbation (3) HTN (hypertension) (4) Influenza A (5) GERD (gastroesophageal reflux disease) (6) No pertinent past surgical history (7) Active smoker . "Provider Documentation" section prepared by Sheldon Farley. . VTE Core Measure Inpt VTE Proph given/why not?: SCD's
[2017-12-01 14:11] VITALS: BP 145/92; PULSE 68; TEMP 36.8; O2SAT 94
[2017-12-01 14:20] VITALS: PULSE 82; O2SAT 97
--- NOTE | 2017-12-02 11:17 | Discharge Summary ---
Discharge Summary Date of Service Dec 02, 2017. Discharge Summary Admission Date: Nov 26, 2017 at 15:50 Discharge Date: Dec 01, 2017 Principal Diagnosis: COPD exacerbation,Influenza A Secondary Diagnoses/Problems: Please see H&P and Hospital Progress note Medication Reconciliation New Medications: Prednisone Tab (Prednisone) 10 Mg Tab 10 MG PO UD for 12 Days, #30 TAB 4 po daily for 3 dasy,3 po daily for 3 dasy,2 po daily for 3 days and the 1 po daily for 3 days Nicotine (Nicoderm Cq) 21 Mg/24 Hr Dis 1 PATCH TD QAM for 30 Days, #30 Continued Medications: Albuterol Hfa (Ventolin Hfa) 200 Puffs/04466 Mcg Aers 2 PUFFS INH Q4H for SOB/Wheezing, #1 INHALER Albuterol Sulfate (Proair Respiclick) 108 Mcg/Act Aer 2 PUFFS INH QID PRN for SOB/Wheezing Citalopram (Citalopram Hydrobromide) 40 Mg Tab 40 MG PO DAILY Fluticasone Furoate-Vilanterol (Breo Ellipta) 1 Inh Inh 1 PUFF INH QAM Ibuprofen (Advil) 200 Mg Tab 400-600 MG PO Q6H PRN for Pain, TAB Ipratropium-Albuterol (Duoneb) 3 Ml Nebu 1 TREATMENT INH Q6H PRN for SOB/Wheezing, INHA Omeprazole (Omeprazole) 20 Mg Tab 1 TAB PO DAILY for 90 Days, #90 TAB 1 Refill Umeclidinium Maxwell (Incruse Ellipta) 62.5 Mcg/Inh Inh 1 PUFF INH DAILY for PRN Admission Information HPI (per Admitting provider): Pt is 57 y/o F with PMH COPD, nocturnal hypemia, depression, GERD, tobacco use presented to ER with c/o fever, increased SOB and cough. Pt reports 2 days ago started with myalgias, cough, increased SOB and tactile fever. Uses oxygen @2L HS chronically. Reports past couple of days has been checking pulse ox at home and sat's 86% and she has been using her oxygen throughout the day. Worsening symptoms today prompted ER visit. Reports granddaughter with URI symptoms recently. Pt states 2 days ago had couple episodes of vomiting and one of diarrhea which has since resolved. Denies PAGAN, dizziness, syncope, vision changes , neck pain, CP, orthopnea, palpitations,hemoptysis, choking, otalgia, abdominal pain, paresthesias, extremity edema, rashes, urinary symptoms. Past Medical/Surgical History Medical Problems: (1) COPD (chronic obstructive pulmonary disease) Status: Chronic (2) Depression Status: Chronic (3) Fibromyalgia Status: Chronic (4) GERD (gastroesophageal reflux disease) Status: Chronic (5) HLD (hyperlipidemia) Status: Chronic (6) HTN (hypertension) Status: Chronic Surgical Problems: (1) Hx of blepharoplasty Status: Resolved (2) No pertinent past surgical history Status: Chronic Social History Problems: (1) Active smoker Status: Chronic Family History Depression Diabetes mellitus Social History Smoking Status: Current Every Day Smoker (1-1.5ppd x 30 years) Smokeless Tobacco Use: No Alcohol Use: occasionally Drug Use: none Marital Status: Housing status: lives with family Occupational Status: unemployed Immunizations History of Influenza Vaccine: No Influenza Vaccine Date: Jul 25, 2008 History of Tetanus Vaccine?: No History of Pneumococcal: Yes History of Hepatitis B Vaccine: No Multi-Drug Resistant Organisms History of MDRO: No Allergies Coded Allergies: CHANTAL Inhibitors (Verified Allergy, Unknown, UNKNOWN RXN, 11/26/17) Zolpidem (Verified Adverse Reaction, Intermediate, other, 11/26/17) irritability, restless legs, wanted to wake up at night during sleep Home Medications Scheduled Albuterol Hfa (Ventolin Hfa), 2 PUFFS INH Q4H Citalopram (Citalopram Hydrobromide), 40 MG PO DAILY Fluticasone Furoate-Vilanterol (Breo Ellipta), 1 PUFF INH QAM Omeprazole (Omeprazole), 1 TAB PO DAILY Umeclidinium Maxwell (Incruse Ellipta), 1 PUFF INH DAILY Scheduled PRN Albuterol Sulfate (Proair Respiclick), 2 PUFFS INH QID PRN for SOB/Wheezing Ibuprofen (Advil), 400-600 MG PO Q6H PRN for Pain Ipratropium-Albuterol (Duoneb), 1 TREATMENT INH Q6H PRN for SOB/Wheezing Review of Systems See HPI for pertinent positives & negatives. All other systems reviewed and were otherwise negative Physical Exam Vital Signs Date Time Temp Pulse Resp B/P (MAP) Pulse Ox O2 Delivery O2 Flow Rate FiO2 11/26/17 17:00 36.8 95 20 122/70 91 Nasal Cannula 4.0 11/26/17 16:27 36.8 92 22 94 Nasal Cannula 4.0 11/26/17 15:53 94 20 130/71 94 Nasal Cannula 4.0 11/26/17 14:46 103 15 104/66 92 Nasal Cannula 2.0 11/26/17 14:07 110 11/26/17 13:27 93 Nasal Cannula 4.0 11/26/17 13:22 38.0 118 40 139/72 80 Room Air General Appearance: WD/WN, no apparent distress Head: normocephalic, atraumatic Eyes: normal inspection, PERRL, EOMI, sclerae normal ENT: hearing grossly normal, pharynx normal, + pertinent finding (mucous membranes moist) Neck: supple, no JVD, trachea midline Respiratory/Chest: no respiratory distress, no accessory muscle use, + decreased breath sounds, + wheezing Cardiovascular: regular rate, rhythm, no murmur, normal peripheral pulses Abdomen/GI: normal bowel sounds, non tender, soft Extremities/Musculoskelatal: normal inspection, normal capillary refill, no pedal edema, normal range of motion, non-tender Neurologic/Psych: alert, normal mood/affect, oriented x 3 Skin: normal color, warm/dry Diagnostics Laboratory Results Results Past 24 Hours Test 11/26/17 13:39 11/26/17 13:58 11/26/17 14:00 11/26/17 14:21 Range/Units White Blood Count 9.22 4.8-10.8 K/uL Red Blood Count 4.34 4.2-5.4 M/uL Hemoglobin 14.2 12.0-16.0 g/dL Hematocrit 41.7 37-47 % Mean Corpuscular Volume 96.1 80-100 fL Mean Corpuscular Hemoglobin 32.7 25-34 pg Mean Corpuscular Hemoglobin Concent 34.1 32-36 g/dl Platelet Count 161 130-400 K/uL Mean Platelet Volume 9.6 7.4-10.4 fL Neutrophils (%) (Auto) 88.3 % Lymphocytes (%) (Auto) 5.1 % Monocytes (%) (Auto) 5.9 % Eosinophils (%) (Auto) 0.2 % Basophils (%) (Auto) 0.2 % Neutrophils # (Auto) 8.14 1.4-6.5 K/uL Lymphocytes # (Auto) 0.47 1.2-3.4 K/uL Monocytes # (Auto) 0.54 0.11-0.59 K/uL Eosinophils # (Auto) 0.02 0-0.5 K/uL Basophils # (Auto) 0.02 0-0.2 K/uL RDW Standard Deviation 49.8 36.4-46.3 fL RDW Coefficient of Variation 14.1 11.5-14.5 % Immature Granulocyte % (Auto) 0.3 % Immature Granulocyte # (Auto) 0.03 0.00-0.02 K/uL Sodium Level 135 136-145 mmol/L Potassium Level 3.6 3.5-5.1 mmol/L Chloride Level 100 98-107 mmol/L Carbon Dioxide Level 25 21-32 mmol/L Anion Gap 10.0 16.0 16-25 mmol/L Blood Urea Nitrogen 12 7-18 mg/dl Creatinine 0.68 0.60-1.20 mg/dl Est Creatinine Clear Calc Drug Dose 80.2 ml/min Estimated GFR () 111.0 Estimated GFR (Non- 95.7 BUN/Creatinine Ratio 17.3 10-20 Random Glucose 89 70-99 mg/dl Calcium Level 8.8 8.5-10.1 mg/dl Magnesium Level 2.0 1.8-2.4 mg/dl Total Bilirubin 0.4 0.2-1 mg/dl Direct Bilirubin < 0.1 0-0.2 mg/dl Aspartate Amino Transf (AST/SGOT) 25 15-37 U/L Alanine Aminotransferase (ALT/SGPT) 26 12-78 U/L Alkaline Phosphatase 81 45-117 U/L Total Creatine Kinase 125 26-192 U/L Creatine Kinase MB 1.7 0.5-3.6 ng/ml Creatine Kinase MB Ratio 1.4 0-3.0 Troponin I < 0.015 0-0.045 ng/ml Total Protein 7.3 6.4-8.2 gm/dl Albumin 3.7 3.4-5.0 gm/dl Bedside Lactic Acid Venous 1.11 0.90-1.70 mmol/L Influenza Type A Antigen POS for Influ A NEG Influenza Type B Antigen Neg for Influ B NEG Bedside Hemoglobin 15.3 12.0-16.0 g/dl Bedside Hematocrit 45 37-47 % Bedside Sodium 136 135-144 mEq/L Bedside Potassium 3.9 3.3-5.0 mEq/L Bedside Chloride 98 101-112 mEq/L Bedside Total CO2 26 24-31 mEq/l Bedside Blood Urea Nitrogen 13 7-18 mg/dl Bedside Creatinine 0.5 0.6-1.3 mg/dl Bedside Glucose (other) 89 70-99 mg/dl Bedside Ionized Calcium (Vincent) 1.06 1.12-1.32 mmol/l Test 11/26/17 14:30 11/26/17 15:50 Range/Units Prothrombin Time 10.5 9.0-12.0 SECONDS Prothromb Time International Ratio 1.0 0.9-1.1 Activated Partial Thromboplast Time 28.4 21.0-31.0 SECONDS Partial Thromboplastin Ratio 1.1 Urine Color YELLOW Urine Appearance CLEAR CLEAR Urine pH 6.0 4.5-7.5 Urine Specific [place] 1.020 1.000-1.030 Urine Protein NEG NEG Urine Glucose (UA) NEG NEG Urine Ketones 2+ NEG Urine Occult Blood NEG NEG Urine Nitrite NEG NEG Urine Bilirubin NEG NEG Urine Urobilinogen NEG NEG Urine Leukocyte Esterase NEG NEG Urine Hyaline Casts (Auto) 0 0-5 /lpf Urine RBC 0-4 0-4 /hpf Urine WBC 0 0-5 /hpf Urine Epithelial Cells 10-20 0-5 /lpf Urine Bacteria NEG NEG Microbiology Results 11/26/17 Blood Culture, Received Pending 11/26/17 Blood Culture, Received Pending Diagnostic Radiology CXR: IMPRESSION: Mild right lower lung reticulonodular interstitial thickening which may reflect a mild infectious process such as bronchiolitis. EKG EKG: sinus tachycardia, non-specific ST changes anterior, lateral leads Impression Assessment and Plan HYPOXIA SECONDARY TO INFLUENZA AND COPD EXACERBATION POSSIBLE PNEUMONIA Pt with onset fever, myalgias, cough 2 days ago with increased SOB and hypoxia with home sat's in mid 80's on RA. In ER O2 sat 80% on RA up to 93% on 4L NC. T : 38. Pulse: 118. Negative POC lactic acid. Troponin negative. CXR: Mild right lower lung reticulonodular interstitial thickening which may reflect a mild infectious process such as bronchiolitis. Pt given zosyn, duoneb, solumedrol 125mg -tamilfu -zosyn -NSS 80ml/hr -xopenex/atrovent neb -supplemental O2, continue HS O2 -solumedrol 40mg QH -continue home inhalers -repeat labs in am GERD -continue PPI DEPRESSION/ANXIETY -continue celexa TOBACCO ABUSE -smoking cessation discussed -nicotine patch DVT Prophylaxis -SCDs Disposition admit med/surg Full Code Follows with Dr Lester for routine care Pt was seen with Dr Robbins. See addendum ATTENDING NOTE : pt seen and examined, care co -ordniated with Leti Zarate PA-C 57 yo F presented with hypoxia , cough flu like symptom Influenza A ag positive started on Tamiflu IV hydration Duo neb/IV steroids for COPD exacerbation Anisha Robbins MD Level of Care Med/Surg Advanced Directives Existing Living Will: No Existing Power of Operations Research Director: No Resuscitation Status FULL RESUSCITATION VTE Prophylaxis VTE Risk Assessment Done? Y/N: Yes Risk Level: Moderate Given or contraindicated: SCD's Additional Copies To Leigh Ann Lester D.O. <Electronically signed by Leti Walters PA-C> <Electronically signed by Anisha Robbins MD> Signed: 11/26/172002 Signed: 11/26/172127 Physical Exam (per Admitting): General Appearance: WD/WN, no apparent distress Head: normocephalic, atraumatic Eyes: normal inspection, PERRL, EOMI, sclerae normal ENT: hearing grossly normal, pharynx normal, + pertinent finding (mucous membranes moist) Neck: supple, no JVD, trachea midline Respiratory/Chest: no respiratory distress, no accessory muscle use, + decreased breath sounds, + wheezing Cardiovascular: regular rate, rhythm, no murmur, normal peripheral pulses Abdomen/GI: normal bowel sounds, non tender, soft Extremities/Musculoskelatal: normal inspection, normal capillary refill, no pedal edema, normal range of motion, non-tender Neurologic/Psych: alert, normal mood/affect, oriented x 3 Skin: normal color, warm/dry Hospital Course Pt is 57 y/o F with PMH COPD, nocturnal hypoxemia, depression, GERD, tobacco use presented to ER with c/o fever, increased SOB and cough. Pt reports 2 days ago started with myalgias, cough, increased SOB and tactile fever. Uses oxygen @ 2L HS chronically. Negative POC lactic acid. Troponin negative. CXR: Mild right lower lung reticulonodular interstitial thickening which may reflect a mild infectious process such as bronchiolitis. HYPOXIA SECONDARY TO INFLUENZA AND COPD EXACERBATION POSSIBLE PNEUMONIA Started on Azithromycin,Ceftriaxone , DuoNeb, and Solumedrol and Tamiflu Supplemental O2, continue HS O2 Continue home inhalers Remains stable ,minimal improvement Increase ambulation Clinically better Solumedrol changed to Orap Prednisone from 11/30 Much better today Increase ambulation -doing better without any desaturation Has Nighttime O2 at home GERD Continue PPI DEPRESSION/ANXIETY Continue Celexa TOBACCO ABUSE Smoking cessation discussed Nicotine patch DVT Prophylaxis -SCDs Disposition admit med/surg Full Code Follows with Dr Lester for routine care Likely discharge today Total time spent on discharge = 35 minutes This includes examination of the patient, discharge planning, medication reconciliation, and communication with other providers. Discharge Instructions Date of Service Dec 01, 2017. Admission Reason for Admission: Influenza A Discharge Discharge Diagnosis / Problem: COPD exacerbation,Influenza A Discharge Goals Goal(s): Prevent Disease Progression Activity Recommendations Activity Limitations: resume your previous activity . Instructions / Follow-Up Instructions / Follow-Up Dr Nicole on at 12:45 PM ( Dr Lester is away) Current Hospital Diet Patient's current hospital diet: AHA Diet (Heart Healthy) Discharge Diet Recommended Diet: AHA Diet (Heart Healthy) Pending Studies Studies pending at discharge: no Medical Emergencies . Who to Call and When: Medical Emergencies: If at any time you feel your situation is an emergency, please call 911 immediately. . Non-Emergent Contact Non-Emergency issues call your: Primary Care Provider . Past History Medical & Surgical History: (1) COPD (chronic obstructive pulmonary disease) (2) COPD exacerbation (3) HTN (hypertension) (4) Influenza A (5) GERD (gastroesophageal reflux disease) (6) No pertinent past surgical history (7) Active smoker . "Provider Documentation" section prepared by Sheldon Farley. . VTE Core Measure Inpt VTE Proph given/why not?: SCD's <Electronically signed by Sheldon Farley M.D.> Signed: 12/01/17 1400 Additional Copies To Leigh Ann Lester D.O.
[2017-12-06] MEDS ORDERED: UMEC1INH INH (15:06)
== END 2017-12-01 15:54 | disposition home or self-care (01) | DRG 194 ==
LOC: C.EDB 12:57 → C.MS4W 15:50 → ENRESERV 16:03
PROVIDERS: ADMIT Hospitalist; ATTEND Internal Medicine
DX: J10.1 Influenza due to other identified influenza virus with other respiratory manifestations (principal); J44.1 Chronic obstructive pulmonary disease with (acute) exacerbation; F17.200 Nicotine dependence, unspecified, uncomplicated; J18.9 Pneumonia, unspecified organism; K21.9 Gastro-esophageal reflux disease without esophagitis; F32.9 Major depressive disorder, single episode, unspecified; R09.02 Hypoxemia

== ENCOUNTER 2017-12-06 15:48 | Emergency (ER) | payer OTHER ==
[~2017-12-06] VITALS: Ht 154.9 cm; Wt 73.2 kg
[~2017-12-06 15:48] MED LIST changes: -ALBU18002 INH; -CITA40TA4 PO; -FLUT1INH INH; -IBUP-1277 PO; -IPRASOL4 INH; +NICO21DI4 TD; +PRED10TA PO; +UMEC1INH INH
[2017-12-06 15:50] VITALS: TEMP 36.8; Ht 154.9 cm; Wt 73.2 kg
[2017-12-06] MEDS ORDERED: SODIUM CHLORIDE 0.9% 1000ML 1,000 ML IV STA (16:03)
[2017-12-06 16:13] VITALS: O2SAT 95
[2017-12-06] MEDS ORDERED: ALBUT/IPRATROP 3MG/0.5MG NEB 3 ML VIAL INH ONE (16:15)
[2017-12-06 16:25] VITALS: PULSE 82; O2SAT 95
--- NOTE | 2017-12-06 16:28 | EMERGENCY ROOM VISIT NOTE ---
ED Visit Note First contact with patient: 15:53 CHIEF COMPLAINT: Weakness, dehydration HISTORY OF PRESENTING ILLNESS: This is a 57-year-old female who presents to the emergency department with complaint of weakness and concern for dehydration. She states that she was seen at [facility] and was sent here for IV fluids. She states that she was recently admitted to the hospital for COPD exacerbation and influenza, she was discharged home 5 days ago. She states she had been feeling better, but began to have some low-grade fevers over the past 2 days, watery and loose diarrhea several times a day, and feeling more and more weak and tired. She denies any headaches, neck pain or stiffness, chest pain, shortness of breath, dizziness or syncope, abdominal pain, nausea or vomiting, bloody or black stools, dysuria, urinary frequency, or rash. She states that she has a chronic cough, this has not been worse than usual. She uses 2 L of oxygen at night and as needed for her COPD, but has not been requiring any additional oxygen or feeling more short of breath than usual. REVIEW OF SYSTEMS: A complete 10 point review of systems was reviewed with the patient with pertinent positives and negatives as per history of present illness. All else were negative. PAST MEDICAL HISTORY: Reviewed in chart. SOCIAL HISTORY: Lives at home. She is a current everyday smoker. She denies alcohol and recreational drug use. ALLERGIES: Reviewed in chart. PHYSICAL EXAM: CONSTITUTIONAL: Pleasant and cooperative. No acute distress. Moderately dehydrated, but otherwise well appearing and well nourished. HEENT: Normocephalic, atraumatic. Pupils equal, round and reactive to light, EOMI. TMs normal. Pharynx normal. Dry mucous membranes. NECK: Supple, full active range of motion without discomfort. No cervical adenopathy. RESPIRATORY: Diminished to auscultation bilaterally with scant inspiratory/ expiratory wheezing. No crackles, rhonchi or stridor. Equal expansion bilaterally. CARDIOVASCULAR: Regular rate and rhythm with no murmurs, rubs or gallops. Normal peripheral perfusion. No edema. GASTROINTESTINAL: Soft, nontender, nondistended. No palpable masses or HSM. Bowel sounds present in all quadrants. MUSCULOSKELETAL: Full range of motion of all joints without discomfort. No leg pain or swelling. INTEGUMENTARY: No rash or other significant dermatologic conditions noted. NEUROLOGIC: Alert and oriented X 4 with normal affect. Cranial nerves II-XII grossly intact. No focal neurologic deficits noted. Normal strength and sensation all 4 extremities. Normal speech. Normal gait observed. ED COURSE AND MEDICAL DECISION MAKING: CC: Patient presenting with complaint of weakness, concern for dehydration. DIFFERENTIAL DIAGNOSIS: Includes, but not limited to dehydration, electrolyte abnormality, anemia, acute coronary syndrome, infectious process such as UTI, pneumonia, bronchitis, viral URI, gastroenteritis, C. difficile infection, among others. INTERPRETATION OF LABS: Leukocytosis, no anemia, mild hypokalemia, no other significant electrolyte abnormalities, normal renal function, normal liver enzymes. Negative troponin. UA appears consistent with contaminant, not infection. IMAGING: CHEST 2 VIEWS ROUTINE CLINICAL HISTORY: 57 years-old Female presenting with eval PNA. TECHNIQUE: PA and lateral views of the chest were obtained. COMPARISON: 11/26/2017. FINDINGS: Cardiomediastinal silhouette normal. Lungs and pleural spaces clear. Osseous structures normal. Upper abdomen normal. IMPRESSION: 1. No acute cardiopulmonary disease. EKG: Shows normal sinus rhythm with a rate of 90 bpm, no ectopy, no acute ischemic changes, no significant changes when compared to EKG from 11/26/2017 by my interpretation. MEDICATION RECONCILIATION: I attest that I have personally reviewed the patient 's current medication list. INITIAL VITAL SIGNS REVIEW: I reviewed the patient's initial vital signs and interpret them as follows: T: Afebrile; BP: Hypertensive; HR: Within normal limits; RR: Within normal limit; Pulse Ox: Within normal limits on room air. Blood pressure screening: The patient was found to have an elevated blood pressure and was referred to their primary doctor for recheck and further treatment. SUMMARY: Patient was evaluated at bedside, history and physical exam performed. Patient is alert and oriented, no acute distress, resting, and stretcher. Patient does appear moderately dehydrated with dry skin and dry mucous membranes. She does report she has been having diarrhea recently. Lungs are diminished throughout with scant wheezes, she denies any shortness of breath, but does request a nebulizer treatment. Abdomen is soft and nontender throughout. Review of the patient's chart shows recent admission for COPD exacerbation and influenza type a. Patient was treated with IV antibiotics during her admission. Given the complaint of diarrhea and some low-grade fevers, C. difficile is a consideration. Orders were placed at bedside for labs, UA, IV fluids for hydration, EKG, chest x-ray to evaluate for pneumonia. Patient discussed with Dr. Olmos, who agrees with my assessment and plan. Labs and imaging reviewed as above, noting leukocytosis, which is suspected to be secondary to steroid use, given no identifiable source for infection and she is afebrile. Patient was able to provide a small stool sample, this was formed and not liquid , and she has a benign abdominal exam, I doubt C. difficile infection at this time. Patient reassessed multiple times throughout ED stay, she is feeling better after neb treatment and IV fluids, asking to go home. She is tolerating PO well. Patient was ambulated in the department, she was noted to have sats of 87%, but denied any SOB or dizziness. Patient states she is feeling much better and is adamant that she wants to go home. She does have home oxygen that she uses as needed as well. I feel the patient can be safely discharged home. Patient was updated on all results and plan for discharge, she was encouraged to follow closely with her PCP, she states she will get an appointment on Friday. Patient was also given strict return precautions should her symptoms worsen, she verbalized understanding. Patient was discharged home in stable condition and ambulatory. Problem List Medical Problems: (1) COPD (chronic obstructive pulmonary disease) Status: Chronic (2) Depression Status: Chronic (3) Fibromyalgia Status: Chronic (4) GERD (gastroesophageal reflux disease) Status: Chronic (5) HLD (hyperlipidemia) Status: Chronic (6) HTN (hypertension) Status: Chronic Surgical Problems: (1) Hx of blepharoplasty Status: Resolved (2) No pertinent past surgical history Status: Chronic Social History Problems: (1) Active smoker Status: Chronic Current/Historical Medications Scheduled Albuterol Hfa (Ventolin Hfa), 2 PUFFS INH Q4H Citalopram (Citalopram Hydrobromide), 40 MG PO DAILY Fluticasone Furoate-Vilanterol (Breo Ellipta), 1 PUFF INH QAM Omeprazole (Omeprazole), 1 TAB PO DAILY Prednisone Tab (Prednisone), 10 MG PO UD Umeclidinium [place] (Incruse Ellipta), 1 PUFF INH DAILY Scheduled PRN Albuterol Sulfate (Proair Respiclick), 2 PUFFS INH QID PRN for SOB/Wheezing Ibuprofen (Advil), 400-600 MG PO Q6H PRN for Pain Ipratropium-Albuterol (Duoneb), 1 TREATMENT INH Q6H PRN for SOB/Wheezing Allergies Coded Allergies: CHANTAL Inhibitors (Verified Allergy, Unknown, UNKNOWN RXN, 11/26/17) Zolpidem (Verified Adverse Reaction, Intermediate, other, 11/26/17) irritability, restless legs, wanted to wake up at night during sleep Vital Signs Date Time Temp Pulse Resp B/P (MAP) Pulse Ox O2 Delivery O2 Flow Rate FiO2 12/06/17 19:52 101 18 138/104 92 12/06/17 18:55 106 18 147/88 91 Room Air 12/06/17 17:08 99 20 156/89 99 Nebulizer 12/06/17 16:25 82 18 95 Room Air 12/06/17 16:14 94 12/06/17 16:13 95 Room Air 12/06/17 15:50 36.8 58 18 147/70 95 Room Air Laboratory Results 12/06/17 16:21 Red Blood Count 3.91, Mean Corpuscular Volume 94.6, Mean Corpuscular Hemoglobin 33.0, Mean Corpuscular Hemoglobin Concent 34.9, Mean Platelet Volume 9.2 12/06/17 16:21 Test 12/06/17 16:21 12/06/17 17:40 White Blood Count 16.97 K/uL (4.8-10.8) Red Blood Count 3.91 M/uL (4.2-5.4) Hemoglobin 12.9 g/dL (12.0-16.0) Hematocrit 37.0 % (37-47) Mean Corpuscular Volume 94.6 fL (80-100) Mean Corpuscular Hemoglobin 33.0 pg (25-34) Mean Corpuscular Hemoglobin Concent 34.9 g/dl (32-36) Platelet Count 306 K/uL (130-400) Mean Platelet Volume 9.2 fL (7.4-10.4) RDW Standard Deviation 47.2 fL (36.4-46.3) RDW Coefficient of Variation 13.7 % (11.5-14.5) Neutrophils % (Manual) 72.1 % Lymphocytes % (Manual) 22.6 % Monocytes % (Manual) 3.5 % Metamyelocytes % 0.9 % Myelocytes % 0.9 % Neutrophils # (Manual) 12.24 K/uL (1.4-6.5) Total Absolute Neutrophils 12.24 K/uL (1.4-6.5) Lymphocytes # (Manual) 3.84 K/uL (1.2-3.4) Total Absolute Lymphocytes 3.84 K/uL (1.2-3.4) Monocytes # (Manual) 0.59 K/uL (0.11-0.59) Metamyelocytes # 0.15 K/uL (0-0) Myelocytes # 0.15 K/uL (0-0) Red Blood Cell Morphology Unremarkable Anion Gap 7.0 mmol/L (3-11) Est Creatinine Clear Calc Drug Dose 58.3 ml/min Estimated GFR () 76.0 Estimated GFR (Non- 65.6 BUN/Creatinine Ratio 15.7 (10-20) Calcium Level 8.7 mg/dl (8.5-10.1) Total Bilirubin 0.4 mg/dl (0.2-1) Aspartate Amino Transf (AST/SGOT) 15 U/L (15-37) Alanine Aminotransferase (ALT/SGPT) 37 U/L (12-78) Alkaline Phosphatase 93 U/L (45-117) Troponin I < 0.015 ng/ml (0-0.045) Total Protein 6.2 gm/dl (6.4-8.2) Albumin 3.0 gm/dl (3.4-5.0) Globulin 3.2 gm/dl (2.5-4.0) Albumin/Globulin Ratio 0.9 (0.9-2) Chemistry Specimen Hemolysis Urine Color YELLOW Urine Appearance CLOUDY (CLEAR) Urine pH 6.5 (4.5-7.5) Urine Specific [place] 1.017 (1.000-1.030) Urine Protein NEG (NEG) Urine Glucose (UA) NEG (NEG) Urine Ketones NEG (NEG) Urine Occult Blood NEG (NEG) Urine Nitrite NEG (NEG) Urine Bilirubin NEG (NEG) Urine Urobilinogen NEG (NEG) Urine Leukocyte Esterase TRACE (NEG) Urine WBC (Auto) 1-5 /hpf (0-5) Urine RBC (Auto) 0-4 /hpf (0-4) Urine Hyaline Casts (Auto) 0 /lpf (0-5) Urine Epithelial Cells (Auto) 20-30 /lpf (0-5) Urine Bacteria (Auto) NEG (NEG) Medications Administered Medications (Trade) Dose Ordered Sig/Rao Route Start Time Stop Time Status Last Admin Dose Admin Albuterol/ Ipratropium (Duoneb) 12 ml ONE ONCE INH 12/06/17 16:15 12/06/17 16:16 DC 12/06/17 16:25 12 ML Sodium Chloride 1,000 ml @ 999 mls/hr Q1H1M STAT IV 12/06/17 16:03 12/06/17 17:03 DC 12/06/17 16:03 999 MLS/HR Departure Information Impression Primary Impression: Dehydration Additional Impression: Diarrhea Dispostion Home / Self-Care Condition GOOD Referrals Leigh Ann Lester D.O. (PCP) Patient Instructions ED Dehydration, ED Diet [place], My [facility] Additional Instructions You have been treated in the Emergency Department today for Dehydration. It is ESSENTIAL that you maintain adequate hydration with oral fluids! Some suggestions include: - Water is the IDEAL replacement for lost fluids. You should initially sip at the water to help facilitate increased intestinal absorption rate and to decrease the possibility of nausea/vomiting. - Carbohydrate/Electrolyte-Containing Drinks (i.e. Gatorade, Powerade, Pedialyte). All of these are good choices, but it is important to remember that all of these drinks contain a high concentration of sugar. - Popsicles, ice chips, and fruit juices are all other options. - My FAVORITE dehydration remedy is to mix a 1:1 solution of bottled Gatorade with bottled water. This dilution allows for a palatable flavor with added benefit of a reduction in the amount of sugar consumption. Stick with a bland diet for the next few days until your diarrhea has improved. If your diarrhea persists, you should have stool cultures done by your primary care provider. As with all Emergency Department visits, you should follow-up with your Primary Care Provider in 2-3 days for reevaluation. Return to the Emergency Department if your current symptoms worsen despite treatment course outlined above, or if you develop any of the following symptoms : increased thirst, weakness, dizziness, increased shortness of breath, chest pain, palpitations, passing out, decreased urine output, or any other concerns. Problem Qualifiers Additional Impression: Diarrhea Diarrhea type: unspecified type Qualified Codes: R19.7 - Diarrhea, unspecified
[2017-12-06 16:40] LABS: HEMOGLOBIN 12.9 g/dL (12.0-16.0); MEAN CELL VOLUME 94.6 fL (80-100); MEAN CORPUSCULAR HGB CONC 34.9 g/dl (32-36); MEAN PLATELET VOLUME 9.2 fL (7.4-10.4); PLATELET COUNT 306 K/uL (130-400); RED CELL DISTRIBUTION WIDTH CV 13.7 % (11.5-14.5); RED CELL DISTRIBUTION WIDTH SD 47.2 fL (36.4-46.3); WHITE BLOOD COUNT 16.97 K/uL (4.8-10.8)
[2017-12-06] MEDS ORDERED: ALBU18002 INH (16:56)
[2017-12-06] MEDS ORDERED: FLUT1INH INH (16:56)
[2017-12-06] MEDS ORDERED: CITA40TA4 PO (16:56)
[2017-12-06] MEDS ORDERED: IBUP-1277 PO (16:56)
--- NOTE | 2017-12-06 17:01 | DIAGNOSTIC IMAGING REPORT ---
CHEST 2 VIEWS ROUTINE CLINICAL HISTORY: 57 years-old Female presenting with eval PNA. TECHNIQUE: PA and lateral views of the chest were obtained. COMPARISON: 11/26/2017. FINDINGS: Cardiomediastinal silhouette normal. Lungs and pleural spaces clear. Osseous structures normal. Upper abdomen normal. IMPRESSION: 1. No acute cardiopulmonary disease. Electronically signed by: Gordy Marshall M.D. 12/06/2017 4:59 PM Dictated Date/Time: 12/06/2017 4:59 PM
[2017-12-06 17:04] LABS: ALKALINE PHOSPHATASE 93 U/L (45-117); ALT/SGPT 37 U/L (12-78); AST/SGOT 15 U/L (15-37); BLOOD UREA NITROGEN 15 mg/dl (7-18); CALCIUM 8.7 mg/dl (8.5-10.1); CARBON DIOXIDE 31 mmol/L (21-32); CREATININE 0.95 mg/dl (0.60-1.20); GLUCOSE 112 mg/dl (70-99); POTASSIUM 3.3 mmol/L (3.5-5.1); SODIUM 140 mmol/L (136-145); TOTAL PROTEIN 6.2 gm/dl (6.4-8.2)
[2017-12-06] MEDS ORDERED: OMEP20TA PO (18:01)
[2017-12-06] MEDS ORDERED: VNTHFA/IN INH (18:01)
[2017-12-06 19:52] VITALS: BP 138/104; PULSE 101; O2SAT 92
[2017-12-06] MEDS ORDERED: IPRASOL4 INH (20:55)
== END 2017-12-06 19:52 | disposition home or self-care (01) ==
LOC: C.EDB 15:49 → C.EDC 19:52
DX: E86.0 Dehydration (principal); R19.7 Diarrhea, unspecified; J44.9 Chronic obstructive pulmonary disease, unspecified; Z99.81 Dependence on supplemental oxygen; F17.210 Nicotine dependence, cigarettes, uncomplicated; F32.9 Major depressive disorder, single episode, unspecified; M79.7 Fibromyalgia; K21.9 Gastro-esophageal reflux disease without esophagitis; E78.5 Hyperlipidemia, unspecified; I10 Essential (primary) hypertension; Z79.899 Other long term (current) drug therapy; Z88.8 Allergy status to other drugs, medicaments and biological substances

== ENCOUNTER 2019-06-10 14:31 | Inpatient (IN) ==
[2019-06-10] MEDS ORDERED: ALBUT/IPRATROP 3MG/0.5MG NEB 3 ML VIAL NEB ONE (14:46)
[2019-06-10] MEDS ORDERED: methylPREDNISolone 125 MG/2 ML VIAL IV STA (14:46)
--- NOTE | 2019-06-10 15:11 | XRay Report ---
SINGLE VIEW CHEST CLINICAL HISTORY: Dyspnea. FINDINGS: 2 AP, portable, upright chest radiographs are compared to study dated 11/26/2017. Correlatio n is made with chest CT dated 05/07/2009. The examination is degraded by portable technique and apical lordotic positioning. The cardiomediastinal silhouette is unremarkable. Emphysema and chronic interst itial thickening are similar to previous. No airspace consolidation or pleural effusion is identified . No pneumothorax is seen. The skeletal structures are osteopenic. The bony thorax is grossly intact. IMPRESSION: Emphysematous change with no active disease in the chest. Electronically signed by: Aquilino Newell M.D. 06/10/2019 3:10 PM
[2019-06-10 15:22] LABS: Basophils # (auto) 0.04 K/uL (0-0.2); Basophils % (auto) 0.5 %; Eosinophils # (auto) 0.09 K/uL (0-0.5); Eosinophils % (auto) 1.1 %; Hematocrit (blood only) 43.1 % (37-47); Hemoglobin 14.5 g/dL (12.0-16.0); Immature Granulocytes # (auto) 0.03 K/uL (0.00-0.02); Immature Granulocytes % (auto) 0.4 %; Lymphocytes # (auto) 1.48 K/uL (1.2-3.4); Lymphocytes % (auto) 18.1 %; Mean Corpuscular Hemoglobin 32.5 pg (25-34); Mean Corpuscular Hgb Conc 33.6 g/dL (32-36); Mean Corpuscular Volume 96.6 fL (80-100); Mean Platelet Volume 9.8 fL (7.4-10.4); Monocytes # (auto) 0.64 K/uL (0.11-0.59); Monocytes % (auto) 7.8 %; Neutrophils # (auto) 5.89 K/uL (1.4-6.5); Neutrophils % (auto) 72.1 %; Platelet Count 194 K/uL (130-400); RDW Coefficient of Variation 13.9 % (11.5-14.5); Red Blood Count 4.46 M/uL (4.2-5.4); White Blood Count 8.17 K/uL (4.8-10.8)
[2019-06-10 15:27] LABS: Prothrombin Time 10.3 Seconds (9.0-12.0)
[2019-06-10 15:33] LABS: Alanine Aminotransferase 41 U/L (12-78); Albumin Level 3.7 gm/dl (3.4-5.0); Aspartate Aminotransferase 27 U/L (15-37); BUN Creatinine Ratio 19.2 (10-20); Blood Urea Nitrogen 13 mg/dl (7-18); Calcium 8.3 mg/dl (8.5-10.1); Carbon Dioxide 30 mmol/L (21-32); Chloride 101 mmol/L (98-107); Creatinine Clr Calc Pharmacy 77.3 ml/min; Est GFR (African American) 108.4; Est GFR (Non-African American) 93.5; Glucose 84 mg/dl (70-99); Potassium 3.3 mmol/L (3.5-5.1); Sodium 138 mmol/L (136-145)
[2019-06-10 15:38] LABS: Albumin Globulin Ratio 1.2 (0.9-2); Alkaline Phosphatase 87 U/L (45-117); Bilirubin,Total 0.4 mg/dl (0.2-1); Globulin 3.2 gm/dl (2.5-4.0); Total Protein 6.9 gm/dl (6.4-8.2); Troponin I < 0.015 ng/ml (0-0.045)
[2019-06-10] MEDS ORDERED: AZITHROMYCIN 250 MG TAB PO ONE (15:42)
--- NOTE | 2019-06-10 17:14 | History & Physical Report ---
Date of Service June 10, 2019 Assessment & Plan (1) Acute respiratory failure with hypoxia: (2) COPD exacerbation: This is a 59yo F with a PMH of COPD on 2L NC O2 HS, HTN and fibromyalgia who presents with SOB since Friday and presents with COPD exacerbation. -Initially hypoxic at 88% on room air, now 92% on 2L NC -Symptoms progressing despite home prednisone 40mg x 3 days -Given IV solu-medrol 125mg, Azithromycin in ED -Checking Flu PCR. Continue IV solu-medrol 40mg daily, Levaquin 500mg daily, Duonebs, supplemental O2 PRN (3) Fibromyalgia: Continue SSRI (4) HTN (hypertension): Continue HCTZ (5) Tobacco use disorder: Smokes 1/2 ppd x 40 years -Nicotine patch ordered DVT Ppx: SQ Lovenox Code status: FULL PCP: Rosa Lester Dispo: Admitted to Plan to return home once medically stable. Patient seen in collaboration with Dr. Perez. Please see addendum. History of Present Illness Chief Complaint: SOB, cough Primary Care Provider: Leigh Ann Lester DO This is a 59yo F with a PMH of COPD on 2L NC O2 HS, HTN and fibromyalgia who presents with SOB since Friday. Endorses subjective fever and associated cough with productive yellowish/green sputum. Started rescue prednisone pack and has taken 40mg for the past 3 days without much improvement. Has not been able to afford Incruse or Breo inhalers for the past 1.5 months due to lack of insurance. Has increased use of rescue inhaler and Duonebs. Follows with Wendy ECHEVARRIA at [facility]. Pulse ox has been 86% at home on room air when she is at 95% at baseline. Uses 2L NC O2 HS. Endorses sick contacts. Smokes 1/2 ppd x 40 years. Denies chills, lightheadedness, visual changes, hemoptysis, chest pain, palpitations, nausea, vomiting, abdominal pain, dysuria, diarrhea or constipation. Allergies Allergy/AdvReac Type Severity Reaction Status Date / Time CHANTAL Inhibitors Allergy Unknown Unknown Verified 06/10/19 15:33 zolpidem AdvReac Intermediate Neuro Verified 06/10/19 15:33 Changes Home Medications Home Medications Medication Instructions Recorded Confirmed Type citalopram 40 mg PO DAILY 03/12/19 06/10/19 History fluticasone furoate-vilanterol 1 inh INHALATION QAM 03/12/19 06/10/19 History [Breo Ellipta] ibuprofen 400 - 600 mg PO Q6H PRN 03/12/19 06/10/19 History ipratropium-albuterol 3 ml INHALATION Q6H PRN 03/12/19 06/10/19 History umeclidinium [Incruse Ellipta] 1 inh INHALATION QAM 03/12/19 06/10/19 History hydrochlorothiazide 25 mg PO Q2D 06/10/19 06/10/19 History Past Med/Surg History Medical History COPD (chronic obstructive pulmonary disease) (Chronic) Fibromyalgia (Chronic) HTN (hypertension) (Chronic) HLD (hyperlipidemia) (Chronic) GERD (gastroesophageal reflux disease) (Chronic) Surgical History No pertinent past surgical history (Chronic) Family History Other Emphysema lung Social History Preferred Language: Fijian Communication Ability: Effective Internal Medicine Hospitalist Required: No Beliefs That Will Affect Care: None marital status: Current Living Situation: Alone Feels Safe at Home: Yes Safety Concerns: Feels Safe At This Time Smoking Status: Current every day smoker Tobacco Type: cigarettes ; Cigarettes Per Day: 20 ; Do You Dip or Chew Tobacco: No ; Second Hand Exposure: No ; Tobacco Cessation Education Requested by Patient: No Hx Alcohol Use: No Hx Substance Use: No Review of Systems Review of Systems: At least ten systems reviewed and negative except as noted in the HPI. Physical Exam Physical Exam: General Appearance: WD/WN, vitals as above, NAD, sitting up in bed, pleasant, conversing easily Head: normocephalic, atraumatic Eyes: normal inspection, PERRL, conjunctivae normal, anicteric sclerae ENT: external ear and nose normal, oropharynx normal Neck: trachea midline, no thyromegaly normal visual inspection Respiratory: prolonged expiratory wheezes, scattered rhonchi, coarse breath sounds. Normal insp/exp effort, no accessory muscle use Cardiovascular: regular rate, rhythm, no murmur, normal peripheral pulses. Vessels: no JVD or carotid bruit Chest: normal inspection of chest Abdomen/GI: normal bowel sounds, soft, nontender, no hepatosplenomegaly Extremities/Musculoskelatal: no cyanosis or clubbing, extremities motor strength 5/5 Neurologic: PERRL, EOMI, accommodation nl, no face palsy, no dysarthria CN's II-XI intact bilaterally and moves all extremities Psychiatric: A+Ox3, euthymic affect Skin: no rashes, normal color, warm/dry Results & Data Vital Signs (Past 12 Hours) Vital Signs Pulse Pulse Resp Pulse Ox 06/10/19 15:19 82 16 93 06/10/19 14:46 88 L 06/10/19 14:33 94 H 16 90 Laboratory Results Short CBC 06/10/19 Range/Units 15:00 WBC 8.17 (4.8-10.8) K/uL Hgb 14.5 (12.0-16.0) g/dL Hct 43.1 (37-47) % Plt Count 194 (130-400) K/uL BMP 06/10/19 15:00 Sodium 138 Potassium 3.3 L Chloride 101 Carbon Dioxide 30 BUN 13 Creatinine 0.70 Glucose 84 Calcium 8.3 L Cardiac Enzymes 06/10/19 Range/Units 15:00 Troponin I < 0.015 (0-0.045) ng/ml Liver Function 06/10/19 Range/Units 15:00 Total Bilirubin 0.4 (0.2-1) mg/dl AST 27 (15-37) U/L ALT 41 (12-78) U/L Alkaline Phosphatase 87 (45-117) U/L Albumin 3.7 (3.4-5.0) gm/dl Urine 06/10/19 Range/Units 17:26 Urine Color Yellow Urine Appearance Clear (Clear) Urine pH 6.0 (4.5-7.5) Ur Specific [place] 1.016 (1.000-1.030) Urine Protein Negative (Negative) Urine Glucose (UA) Negative (Negative) Diagnostic Findings CXR: IMPRESSION: Emphysematous change with no active disease in the chest. Supervising Physician Co-Signing Physician Notes Patient is a 59-year-old female with history of COPD, chronic oxygen dependency, tobacco use disorder, hypertension, fibromyalgia and other problems presents with history of worsening shortness of breath, cough with expectoration since 3 days duration. Patient admits to not using her Brio inhaler secondary to financial problems. She admits to using her rescue inhaler more frequently. Patient also states that she has been requiring to use oxygen during daytime as she noted to have oxygen saturations 86% on room air. Please review HPI for complete details of presentation. On exam patient is moderately built and nourished, no apparent distress, normocephalic atraumatic, lungs-decreased breath sounds, coarse, scattered rhonchi, prolonged expiration, S1-S2, no murmu r, no pedal edema, abdomen soft nontender, grossly no focal neurological deficits. Patient is admitted for management of acute on chronic hypoxic respiratory failure secondary to COPD exacerbation. Agree with IV steroid, glucocorticoids, supplemental oxygen, Levaquin. Flu screen is negative. Advised to quit smoking. I personally reviewed the record. Patient is interviewed and examined at bedside. Patient's care is coordinated with Sharon Gonzalez PA-C. Please refer to the documentation above for details of patient's presentation and for discussion of other issues.
[2019-06-10 17:42] LABS: Appearance Urine Clear (Clear); Bilirubin Urine Negative (Negative); Blood Urine Negative (Negative); Color Urine Yellow; Glucose Urine UA Negative (Negative); Ketones Urine Negative (Negative); Leukocyte Esterase Urine Negative (Negative); Nitrite Urine Negative (Negative); Protein Urine Negative (Negative); Specific Gravity Urine 1.016 (1.000-1.030); Urobilinogen Urine Negative (Negative)
[2019-06-10] MEDS ORDERED: ALBUTEROL 0.083% NEBU SOLN 3 ML VIAL INH PRN (17:47)
[2019-06-10] MEDS ORDERED: NICOTINE POLACRILEX 2 MG GUM MT PRN (17:53)
[2019-06-10] MEDS: ALBUT/IPRATROP 3MG/0.5MG NEB 3 ML VIAL INH SCH (19:28)
[2019-06-10 19:46] LABS: Influenza A virus by PCR Neg for Influ A (Neg); Influenza B virus by PCR Neg for Influ B (Neg)
[2019-06-10] MEDS: ENOXAPARIN INJ 40 MG/0.4 ML SYR SQ SCH (21:19)
[2019-06-10] MEDS: CITALOPRAM 40 MG TAB PO SCH (21:19)
[2019-06-10] MEDS: levoFLOXacin 500 MG TAB PO SCH (21:19)
--- NOTE | 2019-06-10 21:19 | Emergency Department Note ---
Entered by Ayah Workman acting as a scribe for Richard Fox M.D. History of Present Illness General Chief complaint: Shortness of Breath/Dyspnea Stated complaint: COUGH,CANT BREATH,WHEEZING Source: patient Mode of arrival: ambulatory Limitations: no limitations History of Present Illness Onset (ago): day(s) 4 Location: chest Radiation: non-radiation Pain Consistency: + constant Maximum Pain Intensity: 0 Relieved By: + medication (Prednisone) and + other (Oxygen via NC) Exacerbated By: + movement Associated symptoms: + fever/chills and + other (-leg swelling) Treatments prior to arrival: other (Prednisone, Oxygen) The patient is a 59 year old female who presents to the ED with complaints of shortness of breath for the past 4 days. She states her symptoms started as a "bad cough". Her cough has been minimally productive and she now feels like she is "wheezing" and short of breath. She has a history of COPD and has used Prednisone for the past 3 days with minimal relief. She does wear 2L NC to sleep with good relief. Movement worsens her symptoms. She complains of intermittent fevers. She is a current smoker. She denies any swelling in her legs. The patient admits to previous bouts of both pneumonia and bronchitis. She notes her current symptoms feel similar to when she has had pneumonia. Home Medications Home Medications Medication Instructions Recorded Confirmed Type citalopram 40 mg PO DAILY 03/12/19 06/10/19 History fluticasone furoate-vilanterol 1 inh INHALATION QAM 03/12/19 06/10/19 History [Breo Ellipta] ibuprofen 400 - 600 mg PO Q6H PRN 03/12/19 06/10/19 History ipratropium-albuterol 3 ml INHALATION Q6H PRN 03/12/19 06/10/19 History umeclidinium [Incruse Ellipta] 1 inh INHALATION QAM 03/12/19 06/10/19 History hydrochlorothiazide 25 mg PO Q2D 06/10/19 06/10/19 History Allergies Allergy/AdvReac Type Severity Reaction Status Date / Time CHANTAL Inhibitors Allergy Unknown Unknown Verified 06/10/19 15:33 [email or web address] AdvReac Intermediate Neuro Verified 06/10/19 15:33 Changes Past Med/Surg History Medical History COPD (chronic obstructive pulmonary disease) (Chronic) Fibromyalgia (Chronic) HTN (hypertension) (Chronic) HLD (hyperlipidemia) (Chronic) GERD (gastroesophageal reflux disease) (Chronic) Surgical History No pertinent past surgical history (Chronic) Family History Other Emphysema lung Social History Preferred Language: Wallisian Communication Ability: Effective Information Assurance Analyst Required: No Beliefs That Will Affect Care: None marital status: Current Living Situation: Alone Feels Safe at Home: Yes Safety Concerns: Feels Safe At This Time Smoking Status: Current every day smoker Tobacco Type: cigarettes ; Cigarettes Per Day: 20 ; Do You Dip or Chew Tobacco: No ; Second Hand Exposure: No ; Tobacco Cessation Education Requested by Patient: No Hx Alcohol Use: No Hx Substance Use: No Review of Systems See HPI for pertinent positives & negatives. and A total of 10 systems reviewed and were otherwise negative Physical Exam Vital Signs Vital Signs - 24 hr 06/10/19 14:33 06/10/19 14:37 06/10/19 14:46 Sepsis Recent Fever Within 48 Hours No Sepsis New/Unexplained Change in Mental Status No Sepsis Action Taken by Nursing No Action Required Oxygen Flow Rate - Titration 2 Pulse Oximetry Post Tiitration 93 Pulse Rate 94 H Pulse Rate [Left Radial] Pulse Rate from SpO2 Sensor Pulse Rhythm Regular Pulse Strength Normal Respiratory Rate 16 Respiratory Effort / Characteristics Non-Labored Respiratory Depth Normal Respiratory Pattern Regular Blood Pressure Blood Pressure Mean Pulse Oximetry 90 88 L Oxygen Delivery Method Room Air Room Air Room Air Nasal Cannula Oxygen Flow Rate 0 06/10/19 15:01 06/10/19 15:19 06/10/19 15:30 Sepsis Recent Fever Within 48 Hours Sepsis New/Unexplained Change in Mental Status Sepsis Action Taken by Nursing Oxygen Flow Rate - Titration Pulse Oximetry Post Tiitration Pulse Rate 85 79 Pulse Rate [Left Radial] 82 Pulse Rate from SpO2 Sensor Pulse Rhythm Pulse Strength Respiratory Rate 16 16 21 Respiratory Effort / Characteristics Non-Labored Spontaneous Respiratory Depth Respiratory Pattern Blood Pressure Blood Pressure Mean Pulse Oximetry 93 93 100 Oxygen Delivery Method Nebulizer Nasal Cannula Nebulizer Oxygen Flow Rate 1 06/10/19 16:00 06/10/19 17:00 06/10/19 17:22 Sepsis Recent Fever Within 48 Hours Sepsis New/Unexplained Change in Mental Status Sepsis Action Taken by Nursing Oxygen Flow Rate - Titration Pulse Oximetry Post Tiitration Pulse Rate 93 H Pulse Rate [Left Radial] Pulse Rate from SpO2 Sensor 99 H 90 Pulse Rhythm Pulse Strength Respiratory Rate 20 Respiratory Effort / Characteristics Respiratory Depth Respiratory Pattern Blood Pressure 144/75 H Blood Pressure Mean 98 Pulse Oximetry 98 90 90 Oxygen Delivery Method Nebulizer Room Air Nasal Cannula Oxygen Flow Rate 4 06/10/19 17:30 Sepsis Recent Fever Within 48 Hours Sepsis New/Unexplained Change in Mental Status Sepsis Action Taken by Nursing Oxygen Flow Rate - Titration Pulse Oximetry Post Tiitration Pulse Rate 100 H Pulse Rate [Left Radial] Pulse Rate from SpO2 Sensor Pulse Rhythm Pulse Strength Respiratory Rate 20 Respiratory Effort / Characteristics Respiratory Depth Respiratory Pattern Blood Pressure Blood Pressure Mean Pulse Oximetry 94 Oxygen Delivery Method Nasal Cannula Oxygen Flow Rate 4 GENERAL: Awake, alert, fatigued in appearance, coughing HENT: Normocephalic, atraumatic. Oropharynx unremarkable. EYES: Normal conjunctiva. Sclera non-icteric. NECK: Supple. No nuchal rigidity. RESPIRATORY: Diffuse expiratory wheeze, slight increased work of breathing. CARDIAC: Normal rate. Normal rhythm. Extremities warm and well perfused. GI: Soft, non-distended. No tenderness to palpation. No rebound or guarding. No masses. RECTAL: Deferred. MUSCULOSKELETAL: Atraumatic. Chest examination reveals no tenderness. LOWER EXTREMITIES: Calves are equal size bilaterally and non-tender. No edema NEURO: Normal sensorium. No sensory or motor deficits noted. No facial droop. SKIN: Warm and dry. No rash or jaundice noted. Course 1440: The patient was evaluated in room C11B and a complete history and physical were performed. 1540: I reevaluated the patient. She is resting comfortably. 1645: I reevaluated the patient. She is resting comfortably. I discussed her results and my recommendation she remain in the hospital for further evaluation and management and she is agreeable with the plan. 1652: I discussed the patients case with Sharon Gonzalez PA-C, [facility]. The patient will be further evaluated. Consultations Consultation #1: I discussed the patients case with Sharon Gonzalez PA-C, [facility]. The patient will be further evaluated. Time: 16:52 Administered Medications Albuterol (Duoneb) 3 ml INH Q6R ELISA Stop: 07/10/19 18:59 Last Admin: 06/10/19 19:28 Dose: 3 ml Documented by: [id number] Discontinued Medications Albuterol (Duoneb) 12 ml NEB ONE ONE Stop: 06/10/19 14:47 Last Admin: 06/10/19 15:17 Dose: 12 ml Documented by: [id number] Azithromycin (Zithromax) 500 mg PO NOW ONE Stop: 06/10/19 15:43 Last Admin: 06/10/19 16:29 Dose: 500 mg Documented by: [id number] Methylprednisolone (Solumedrol) 125 mg IV NOW STA Stop: 06/10/19 14:47 Last Admin: 06/10/19 15:06 Dose: 125 mg Documented by: [id number] Medical Decision Making Differential Diagnosis Differential diagnoses includes but is not limited to pneumonia, bronchitis, COPD/Asthma exacerbation, pneumothorax, pulmonary embolism, congestive heart failure, acute coronary syndrome Medical Records Attestation: I reviewed the patient's medical records. Home Medications Current Medication List: was personally reviewed by me Laboratory Data Attestation: I reviewed the patient's lab results. Result diagrams: 06/10/19 15:00 06/10/19 15:00 Lab Results 06/10/19 06/10/19 06/10/19 Range/Units 15:00 15:00 15:00 WBC 8.17 (4.8-10.8) K/uL RBC 4.46 (4.2-5.4) M/uL Hgb 14.5 (12.0-16.0) g/dL Hct 43.1 (37-47) % MCV 96.6 (80-100) fL MCH 32.5 (25-34) pg MCHC 33.6 (32-36) g/dL RDW Std Deviation 49.0 H (36.4-46.3) fL RDW Coeff of Silvio 13.9 (11.5-14.5) % Plt Count 194 (130-400) K/uL MPV 9.8 (7.4-10.4) fL Immature Gran % (Auto) 0.4 % Neut % (Auto) 72.1 % Lymph % (Auto) 18.1 % [place] % (Auto) 7.8 % Eos % (Auto) 1.1 % Baso % (Auto) 0.5 % Immature Gran # (Auto) 0.03 H (0.00-0.02) K/uL Neut # (Auto) 5.89 (1.4-6.5) K/uL Lymph # (Auto) 1.48 (1.2-3.4) K/uL [place] # (Auto) 0.64 H (0.11-0.59) K/uL Eos # (Auto) 0.09 (0-0.5) K/uL Baso # (Auto) 0.04 (0-0.2) K/uL PT 10.3 (9.0-12.0) Seconds INR 1.0 (0.9-1.1) Sodium 138 (136-145) mmol/L Potassium 3.3 L (3.5-5.1) mmol/L Chloride 101 (98-107) mmol/L Carbon Dioxide 30 (21-32) mmol/L Anion Gap 7.0 (3-11) BUN 13 (7-18) mg/dl Creatinine 0.70 (0.6-1.2) mg/dl Est Cr Clr Drug Dosing 77.3 ml/min Est GFR ( Amer) 108.4 Est GFR (Non-Af Amer) 93.5 BUN/Creatinine Ratio 19.2 (10-20) Glucose 84 (70-99) mg/dl Calcium 8.3 L (8.5-10.1) mg/dl Magnesium 2.0 (1.8-2.4) mg/dl Total Bilirubin 0.4 (0.2-1) mg/dl AST 27 (15-37) U/L ALT 41 (12-78) U/L Alkaline Phosphatase 87 (45-117) U/L Troponin I < 0.015 (0-0.045) ng/ml Total Protein 6.9 (6.4-8.2) gm/dl Albumin 3.7 (3.4-5.0) gm/dl Globulin 3.2 (2.5-4.0) gm/dl Albumin/Globulin Ratio 1.2 (0.9-2) Urine Color Urine Appearance (Clear) Urine pH (4.5-7.5) Ur Specific [place] (1.000-1.030) Urine Protein (Negative) Urine Glucose (UA) (Negative) Urine Ketones (Negative) Urine Blood (Negative) Urine Nitrite (Negative) Urine Bilirubin (Negative) Urine Urobilinogen (Negative) Ur Leukocyte Esterase (Negative) 06/10/19 Range/Units 17:26 WBC (4.8-10.8) K/uL RBC (4.2-5.4) M/uL Hgb (12.0-16.0) g/dL Hct (37-47) % MCV (80-100) fL MCH (25-34) pg MCHC (32-36) g/dL RDW Std Deviation (36.4-46.3) fL RDW Coeff of Silvio (11.5-14.5) % Plt Count (130-400) K/uL MPV (7.4-10.4) fL Immature Gran % (Auto) % Neut % (Auto) % Lymph % (Auto) % [place] % (Auto) % Eos % (Auto) % Baso % (Auto) % Immature Gran # (Auto) (0.00-0.02) K/uL Neut # (Auto) (1.4-6.5) K/uL Lymph # (Auto) (1.2-3.4) K/uL [place] # (Auto) (0.11-0.59) K/uL Eos # (Auto) (0-0.5) K/uL Baso # (Auto) (0-0.2) K/uL PT (9.0-12.0) Seconds INR (0.9-1.1) Sodium (136-145) mmol/L Potassium (3.5-5.1) mmol/L Chloride (98-107) mmol/L Carbon Dioxide (21-32) mmol/L Anion Gap (3-11) BUN (7-18) mg/dl Creatinine (0.6-1.2) mg/dl Est Cr Clr Drug Dosing ml/min Est GFR ( Amer) Est GFR (Non-Af Amer) BUN/Creatinine Ratio (10-20) Glucose (70-99) mg/dl Calcium (8.5-10.1) mg/dl Magnesium (1.8-2.4) mg/dl Total Bilirubin (0.2-1) mg/dl AST (15-37) U/L ALT (12-78) U/L Alkaline Phosphatase (45-117) U/L Troponin I (0-0.045) ng/ml Total Protein (6.4-8.2) gm/dl Albumin (3.4-5.0) gm/dl Globulin (2.5-4.0) gm/dl Albumin/Globulin Ratio (0.9-2) Urine Color Yellow Urine Appearance Clear (Clear) Urine pH 6.0 (4.5-7.5) Ur Specific [place] 1.016 (1.000-1.030) Urine Protein Negative (Negative) Urine Glucose (UA) Negative (Negative) Urine Ketones Negative (Negative) Urine Blood Negative (Negative) Urine Nitrite Negative (Negative) Urine Bilirubin Negative (Negative) Urine Urobilinogen Negative (Negative) Ur Leukocyte Esterase Negative (Negative) Imaging Data Radiologist's Impression: Radiology results as stated below per my review and the radiologist's interpretation: SINGLE VIEW CHEST CLINICAL HISTORY: Dyspnea. FINDINGS: 2 AP, portable, upright chest radiographs are compared to study dated 11/26/2017. Correlation is made with chest CT dated 05/07/2009. The examination is degraded by portable technique and apical lordotic positioning. The cardiomediastinal silhouette is unremarkable. Emphysema and chronic interstitial thickening are similar to previous. No airspace consolidation or pleural effusion is identified. No pneumothorax is seen. The skeletal structures are osteopenic. The bony thorax is grossly intact. IMPRESSION: Emphysematous change with no active disease in the chest. Electronically signed by: Aquilino Newell M.D. 06/10/2019 3:10 PM ECG Data Attestation: I personally reviewed and interpreted this ECG as follows: Indication: SOB/dyspnea Rate (beats per minute): 86 Rhythm: normal sinus Findings: + other (Normal intervals); no PVC, no ST depression and no ST elevation Blood Pressure Blood Pressure Findings: Elevated blood pressure Blood Pressure Disposition: further management by hospitalist SANKET Narrative Patient is a 59-year-old female with a history of COPD, hypertension, hyperlipidemia, depression, GERD, fiber myalgia presenting the emergency department today stating that she feels her short of breath and prickly lightheaded when she is coughs. This been going on for the past 4 days. Patient does use oxygen at night but not during the day is 90% on room air. No fevers or trauma reported. Has started prednisone several days ago to see if this would help. States that she has run out of her maintenance inhalers for the last several months due to cost reasons. States feels like when she had pneumonia in the past. Not significant hypoxic on room air here but significant wheeze. No signs of CHF or fluid overload. Doubt this represents PE given her diffuse wheeze and clinical hx. Given DuoNeb's and Solu-Medrol here. Given a dose of azithromycin. Chest x-ray did not show any evidence of focal consolidation at this time. Does not appear encephalopathic at this time. Do not believe she is septic. Believe is primarily driven by COPD exacerbati on/bronchitis. After breathing treatments patient still with significant work of breathing and given that she is been started several days and still with SOB, believe admission for further care is warranted and she is in agreement. [facility] Impression & Plan COPD exacerbation, Hypoxia Discharge Plan Visit Data *Final* Discharge Date/Time: 06/10/19 19:00 Chief Complaint: Shortness of Breath/Dyspnea Stated Complaint: COUGH,CANT BREATH,WHEEZING ED Provider: Richard Fox Discharge Problem: COPD exacerbation, Hypoxia Patient Disposition: Admitted As Inpatient Discharge Instructions Interventions: ED Discharge Assessment Last Done: 06/10/19 19:00 The scribe's documentation has been prepared under my direction and personally reviewed by me in its entirety. I confirm that the note above accurately reflects all work, treatment, procedures, and medical decision making performed by me.
[2019-06-10] MEDS: NICOTINE 14 MG/24 HR PATCH TD SCH (21:20)
[2019-06-10] MEDS ORDERED: POTASSIUM CHLORIDE 10 MEQ TABCR PO STA (21:22)
[2019-06-11] MEDS: IBUPROFEN 200 MG TAB PO PRN ×2 (00:06→14:27)
[2019-06-11] MEDS: ALBUT/IPRATROP 3MG/0.5MG NEB 3 ML VIAL INH SCH ×4 (01:41→18:40)
[2019-06-11 07:09] LABS: Hematocrit (blood only) 40.1 % (37-47); Hemoglobin 13.5 g/dL (12.0-16.0); Mean Corpuscular Hemoglobin 32.5 pg (25-34); Mean Corpuscular Hgb Conc 33.7 g/dL (32-36); Mean Corpuscular Volume 96.4 fL (80-100); Mean Platelet Volume 9.9 fL (7.4-10.4); Platelet Count 208 K/uL (130-400); RDW Coefficient of Variation 13.6 % (11.5-14.5); RDW Standard Deviation 47.7 fL (36.4-46.3); Red Blood Count 4.16 M/uL (4.2-5.4)
[2019-06-11 07:19] LABS: BUN Creatinine Ratio 24.9 (10-20); Calcium 8.2 mg/dl (8.5-10.1); Creatinine Clr Calc Pharmacy 83.5 ml/min; Est GFR (African American) 111.6; Est GFR (Non-African American) 96.3; Potassium 4.4 mmol/L (3.5-5.1)
[2019-06-11] MEDS: hydroCHLOROthiazide 25 MG TAB PO SCH (07:55)
[2019-06-11] MEDS ORDERED: methylPREDNISolone 40 MG in SYRINGE 0 ML IV SCH (09:00)
[2019-06-11] MEDS ORDERED: ZOLPIDEM TARTRATE 5 MG TAB PO PRN (16:26)
[2019-06-11] MEDS ORDERED: TRAZODONE HCL 50 MG TAB PO PRN (18:35)
--- NOTE | 2019-06-11 19:45 | Hospitalist Progress Note ---
Date of Service June 11, 2019 Assessment & Plan (1) COPD exacerbation: COPD exacerbation (Acute) Presented with cough, wheezing, dyspnea. Chest x-ray showed emphysematous changes, no infiltrates. Receiving treatment with levofloxacin, methylprednisolone, nebulizer treatments with improvement. Transition to oral steroids tomorrow. Hypoxia (Acute) O2 saturations as low as 80% on room air. Hypoxia secondary to exacerbation of COPD. Received supplemental oxygen. Oxygen saturations now improved with O2 sats in the 90s on room air. HTN (hypertension) (Chronic) Continue hydrochlorothiazide. Fibromyalgia (Chronic) Continue citalopram. Tobacco use disorder (Chronic) Smokes 1 pack/day. Nicotine patch. Smoking cessation counseling. VTE prophylaxis SQ enoxaparin. Ambulate. Disposition Anticipated discharge to home. Family Medicine follow-up with Dr. Leigh Ann Lester. Subjective Recheck for exacerbation of COPD. Patient seen in their room around 1620. Sister visiting. Admitted yesterday afternoon with exacerbation of COPD. Feels better today. Cough, wheezing, dyspnea improved. No chest pain. Review of Systems: Constitutional- no fever. Cardiac- no chest pain. Pulmonary- as noted above. GI- no nausea, vomiting, diarrhea, melena, hematochezia. - no urinary symptoms. Otherwise, as noted above. Physical Exam Physical Exam: Constitutional- afebrile, no acute distress Eyes- sclerae anicteric Respiratory- few scattered rhonchi, diffuse moderate wheezing Cardiovascular- cardiac rhythm regular, no murmurs or gallops appreciated, no JVD, no pretibial edema or calf tenderness Gastrointestinal- normal bowel sounds, soft, nondistended, nontender Skin- warm and dry, no rash Psychiatric- alert, oriented, somewhat anxious Results & Data Vital Signs (Past 12 Hours) Vital Signs Temp Pulse Pulse Pulse Resp BP Pulse Ox 06/11/19 18:40 79 16 95 06/11/19 17:46 36.7 C 90 18 145/84 H 93 06/11/19 16:28 36.9 C 84 19 153/99 H 93 06/11/19 13:20 74 16 95 06/11/19 11:12 36.9 C 77 20 156/85 H 96 06/11/19 08:00 66 Laboratory Results Laboratory Results - last 24 hr 06/10/19 06/11/19 06/11/19 19:00 06:26 06:26 WBC 10.00 RBC 4.16 L Hgb 13.5 Hct 40.1 MCV 96.4 MCH 32.5 MCHC 33.7 RDW Std Deviation 47.7 H RDW Coeff of Silvio 13.6 Plt Count 208 MPV 9.9 Sodium 137 Potassium 4.4 D Chloride 104 Carbon Dioxide 27 Anion Gap 6.0 BUN 16 Creatinine 0.64 Est Cr Clr Drug Dosing 83.5 Est GFR ( Amer) 111.6 Est GFR (Non-Af Amer) 96.3 BUN/Creatinine Ratio 24.9 H Glucose 105 H Calcium 8.2 L Magnesium 2.0 Influenza Type A (PCR) Neg for Influ A Influenza Type B (PCR) Neg for Influ B
[2019-06-11] MEDS: levoFLOXacin 500 MG TAB PO SCH (20:07)
[2019-06-11] MEDS: ENOXAPARIN INJ 40 MG/0.4 ML SYR SQ SCH (21:28)
[2019-06-11] MEDS: NICOTINE 14 MG/24 HR PATCH TD SCH (21:28)
[2019-06-12] MEDS: ALBUT/IPRATROP 3MG/0.5MG NEB 3 ML VIAL INH SCH ×3 (02:12→13:29)
[2019-06-12] MEDS: CITALOPRAM 40 MG TAB PO SCH (08:17)
[2019-06-12] MEDS: hydroCHLOROthiazide 25 MG TAB PO SCH (08:18)
[2019-06-12] MEDS ORDERED: NICOTINE 14 MG/24 HR PATCH TD SCH (09:00)
[2019-06-12] MEDS ORDERED: predniSONE 20 MG TAB PO SCH (09:00)
--- NOTE | 2019-06-12 15:16 | Hospitalist Progress Note ---
Date of Service June 12, 2019 Assessment & Plan (1) COPD exacerbation: COPD exacerbation (Acute) Presented with cough, wheezing, dyspnea. Chest x-ray showed emphysematous changes, no infiltrates. Receiving treatment with levofloxacin, methylprednisolone, nebulizer treatments with improvement. Transitioned to oral steroids. Discharge on prednisone 40 mg daily without taper to complete 5 days of steroid therapy + doxycycline for bronchitis. Continue Duonebs at home (confirmed that pt has med at home). Pt has been unable to obtain Breo Eplipta and Incruse Ellipta because of cost. Perhaps more affordable alternatives will be allowed by her prescription coverage. Consider f/u PFT's after resolution of acute illness. Has been seen in Pulmonary Clinic, but apparently not for some time. Consider f/u with Pulmonary Medicine if PFT's show significant disease. Hypoxia (Acute) O2 saturations as low as 80% on room air. Hypoxia secondary to exacerbation of COPD. Received supplemental oxygen. Oxygen saturations now improved with O2 sats in the 90s on room air. HTN (hypertension) (Chronic) Continue hydrochlorothiazide. Fibromyalgia (Chronic) Continue citalopram. Tobacco use disorder (Chronic) Smokes 1 pack/day. Nicotine patch. Importance of smoking cessation discussed; ongoing smoking cessation counseling as outpatient. VTE prophylaxis SQ enoxaparin. Ambulate. Disposition Discharge to home. Family Medicine follow-up with Dr. Leigh Ann Lester. Subjective Recheck for exacerbation of COPD. Patient seen in their room around 1510. Feels much better today. Cough, wheezing, dyspnea improved. No chest pain. No fever. Review of Systems: Constitutional- no fever. Cardiac- no chest pain. Pulmonary- as noted above. GI- no nausea, vomiting, diarrhea, melena, hematochezia. - no urinary symptoms. Otherwise, as noted above. Physical Exam Physical Exam: Constitutional- afebrile, no acute distress Eyes- sclerae anicteric Respiratory- diffuse mild-moderate expiratory wheezing Cardiovascular- cardiac rhythm regular, no murmurs or gallops appreciated, no JVD, no pretibial edema or calf tenderness Gastrointestinal- normal bowel sounds, soft, nondistended, nontender Skin- warm and dry, no rash Psychiatric- alert, oriented Results & Data Vital Signs (Past 12 Hours) Vital Signs Temp Pulse Resp BP Pulse Ox 06/12/19 13:31 70 18 91 06/12/19 07:42 66 16 97 06/12/19 07:16 36.7 C 70 20 124/80 96
--- NOTE | 2019-06-13 22:13 | Discharge Summary ---
Date of Service Date of Admission: 06/10/19 Date of Discharge: 06/12/19 Admission HPI Per Admitting Provider This is a 59yo F with a PMH of COPD on 2L NC O2 HS, HTN and fibromyalgia who presents with SOB since Friday. Endorses subjective fever and associated cough with productive yellowish/green sputum. Started rescue prednisone pack and has taken 40mg for the past 3 days without much improvement. Has not been able to afford Incruse or Breo inhalers for the past 1.5 months due to lack of insurance. Has increased use of rescue inhaler and Duonebs. Follows with Wendy ECHEVARRIA at [facility]. Pulse ox has been 86% at home on room air when she is at 95% at baseline. Uses 2L NC O2 HS. Endorses sick contacts. Smokes 1/2 ppd x 40 years. Denies chills, lightheadedness, visual changes, hemoptysis, chest pain, palpitations, nausea, vomiting, abdominal pain, dysuria, diarrhea or constipation. Principal Diagnosis exacerbation COPD Discharge Data Allergies Allergy/AdvReac Type Severity Reaction Status Date / Time CHANTAL Inhibitors Allergy Unknown Unknown Verified 06/10/19 15:33 zolpidem AdvReac Intermediate Neuro Verified 06/10/19 15:33 Changes Consultations 06/10/19 16:54 ED Decision to Admit Stat Hospital Course (1) COPD exacerbation: COPD exacerbation (Acute) Presented with cough, wheezing, dyspnea. Chest x-ray showed emphysematous changes, no infiltrates. Receiving treatment with levofloxacin, methylprednisolone, nebulizer treatments with improvement. Transitioned to oral steroids. Discharge on prednisone 40 mg daily without taper to complete 7 days of steroid therapy + doxycycline for bronchitis. Continue Duonebs at home (confirmed that pt has med at home). Pt has been unable to obtain Breo Eplipta and Incruse Ellipta because of cost. Perhaps more affordable alternatives will be allowed by her prescription coverage. Consider f/u PFT's after resolution of acute illness. Has been seen in Pulmonary Clinic, but apparently not for some time. Consider f/u with Pulmonary Medicine if PFT's show significant disease. Hypoxia (Acute) O2 saturations as low as 80% on room air. Hypoxia secondary to exacerbation of COPD. Received supplemental oxygen. Oxygen saturations now improved with O2 sats in the 90s on room air. HTN (hypertension) (Chronic) Continue hydrochlorothiazide. Fibromyalgia (Chronic) Continue citalopram. Tobacco use disorder (Chronic) Smokes 1 pack/day. Nicotine patch. Importance of smoking cessation discussed; ongoing smoking cessation counseling as outpatient. VTE prophylaxis SQ enoxaparin. Ambulate. Disposition Discharged to home. Family Medicine follow-up with Dr. Leigh Ann Lester. Total Time Total Time Spent Total Time Spent (In Minutes): 40 Discharge Plan Discharge Items Patient Disposition: Home - Self-Care Reason For Visit: worsening COPD Discharge Diagnosis: worsening COPD Condition: Good Discharge Goals: Decrease discomfort and Improve disease control Activity: As commented below Activity Comment: gradually increase activity as tolerated Non-emergency contact: Primary Care Provider, Hospitalist and Laser Systems Engineer Call non-emergency contact if: you have any medication questions and your symptoms worsen Follow-up/Referrals: Leigh Ann Lester DO [Primary Care Provider] - (06/16/2019 1:00 PM Opal Bales MD(covering for Dr. Lester) [facility]) Diet: Heart Healthy [facility] Provider Instructions: MEDICATION CHANGES: Take doxycycline 100 mg twice a day for 5 days. (antibiotic for bronchitis) Take prednisone 4 pills (40 mg) daily for 5 days. (for inflammation in bronchial tree) SUMMARY OF TEST RESULTS: Chest x-ray did not show any pneumonia. PENDING TEST RESULTS: None. RECOMMENDATIONS FOR FOLLOW-UP: Please discuss getting new pulmonary function tests with your primary care provider. OTHER INSTRUCTIONS: It is very important that you quit smoking. Please discuss with your primary care provider. Seek medical attention if you have: * temperature above 101 * chest pain or trouble breathing * abdominal pain, nausea, vomiting * diarrhea, dark stools or bloody stools * any unanswered questions or concerns Call 911 if symptoms are severe. Please take good care of yourself. Call if you have any questions or problems. You can reach a [facility] hospitalist on duty at [facility] 24 hours a day by calling [phone]. My cell # is [phone]. Prescriptions: New doxycycline hyclate 100 mg capsule 100 mg PO BID Qty: 10 RF: 0 prednisone 10 mg tablet 40 mg PO DAILY Qty: 20 RF: 0 Continued ipratropium-albuterol 0.5 mg-3 mg(2.5 mg base)/3 mL Solution For Nebulization 3 ml INHALATION Q6H PRN (Reason: Shortness Of Breath Or Wheezing) RF: 0 citalopram 40 mg tablet 40 mg PO DAILY RF: 0 ibuprofen 200 mg Tablet 400 - 600 mg PO Q6H PRN (Reason: Pain) RF: 0 Breo Ellipta 100-25 mcg/dose blister with device 1 inh inhalation QAM RF: 0 Incruse Ellipta 62.5 mcg/actuation blister with device 1 inh inhalation QAM RF: 0 hydrochlorothiazide 25 mg Tablet 25 mg PO Q2D RF: 0 Visit Report Forms: Smoking Cessation Stand-Alone Forms: [facility] Discharge Orders: Discharge Order (Routine); Ordered 06/12/19 Ordered By: Jan Obrien Admission Data Admit Date/Time: 06/10/19 17:46 Attending Provider: Jan Obrien Admit Provider: Marc Perez Primary Care Provider: Leigh Ann Lester Other Providers: Marc Perez Service: Medical Other Interventions: Discharge Summary Assessment (RN) Last Done: 06/12/19 15:47 DC Date/Time DO NOT enter until pt leaves facility: 06/12/19 16:04
== END 2019-06-12 16:04 | disposition home or self-care (01) | DRG 189 ==
LOC: ED 14:31 → 2S 17:46 → 4W 06-11 16:27